=== PATIENT | female | born 1960 | race African-American/Black ===

== ENCOUNTER → 2016-08-06 | Outpatient (CLI) | payer OTHER, BC | LOC: WI 11:19 | PROVIDERS: ATTEND Nurse Practitioner Primary Care | DX: Z12.31 Encounter for screening mammogram for malignant neoplasm of breast (principal) | CPT/HCPCS: 77067; G0202 ==

== ENCOUNTER 2017-01-30 19:41 | Inpatient (IN) | payer OTHER, BC ==
--- NOTE | 2017-01-30 20:31 | ER Document Report ---
ED Medical Screen (RME) - General Chief Complaint: Abdominal Pain >50 Stated Complaint: ABDOMINAL/SHOULDER PAIN Time Seen by Provider: 01/30/17 20:21 Notes: This 57-year-old female patient comes emergency room complaining of onset Tuesday afternoon of mid abdominal pain running from the umbilicus up toward the sternum. She reports the pain was fairly constant until this evening when she took some "digestive advantage" about 6 PM and the discomfort seems to have eased off. She is normally on no medications other than some vitamins. Past medical history is essentially negative. She did have an umbilical hernia repair, no other surgeries. She also reports she had some pain in her left shoulder associated with this, but has been told she has bursitis, and thinks the pain was from being under air conditioning at work. Her mother had coronary artery bypass grafting done at age 60, her father of a heart attack at age 73. I have greeted and performed a rapid initial assessment of this patient. A comprehensive ED assessment and evaluation of the patient, analysis of test results and completion of the medical decision making process will be conducted by additional ED providers. TRAVEL OUTSIDE OF THE [place] IN LAST 30 DAYS: No - Related Data Allergies/Adverse Reactions: oxycodone [Oxycodone] Allergy (Mild, Verified 01/30/17 20:12) Past Medical History - Social History Chew tobacco use (# tins/day): No Frequency of alcohol use: None Drug Abuse: None Renal/ Medical History: Denies: Hx Peritoneal Dialysis GI Medical History: Reports: Hx Gastroesophageal Reflux Disease Past Surgical History: Reports: Hx Abdominal Surgery - hernia repair, Hx Breast Surgery - left lumpectomy - Immunizations Hx Diphtheria, Pertussis, Tetanus Vaccination: Yes Physical Exam - Vital signs Vitals: Temp Pulse Resp BP Pulse Ox 98.5 F 99 18 134/88 H 94 01/30/17 20:12 01/30/17 20:12 01/30/17 20:12 01/30/17 20:12 01/30/17 20:12 Course - Vital Signs Vital signs: Temp Pulse Resp BP Pulse Ox 98.5 F 99 18 134/88 H 94 01/30/17 20:12 01/30/17 20:12 01/30/17 20:12 01/30/17 20:12 01/30/17 20:12
[2017-01-30 20:42] LABS: ABSOLUTE BASOPHILS # (AUTO) 0.1 10^3/uL (0.0-0.2); ABSOLUTE EOSINOPHILS # (AUTO) 0.1 10^3/uL (0.0-0.6); ABSOLUTE LYMPHOCYTES (AUTO) 2.1 10^3/uL (0.5-4.7); ABSOLUTE MONOCYTES (AUTO) 1.9 10^3/uL (0.1-1.4); ABSOLUTE NEUT (AUTO) 9.6 10^3/uL (1.7-8.2); BASOPHILS % (AUTO) 0.5 % (0-2); EOSINOPHILS % (AUTO) 0.4 % (0-6); HEMATOCRIT 38.4 % (36.0-47.0); HEMOGLOBIN 13.5 g/dL (12.0-15.5); HGB HCT DIFFERENCE 2.1; LYMPHOCYTES % (AUTO) 15.3 % (13-45); MEAN CORPUSCULAR HEMOGLOBIN 30.2 pg (27.0-33.4); MEAN CORPUSCULAR HGB CONC 35.3 g/dL (32.0-36.0); MEAN CORPUSCULAR VOLUME 85 fl (80-97); MONOCYTES % (AUTO) 13.8 % (3-13); RED BLOOD COUNT 4.49 10^6/uL (3.72-5.28); RED CELL DISTRIBUTION WIDTH 14.1 % (11.5-14.0); WHITE BLOOD COUNT 13.7 10^3/uL (4.0-10.5)
[2017-01-30 20:59] LABS: ALANINE AMINOTRANSFERASE 35 U/L (9-52); ALBUMIN 3.9 g/dL (3.5-5.0); ALKALINE PHOSPHATASE 77 U/L (38-126); ANION GAP 10 (5-19); ASPARTATE AMINO TRANSFERASE 29 U/L (14-36); BILIRUBIN,DIRECT 0.3 mg/dL (0.0-0.4); BILIRUBIN,TOTAL 0.7 mg/dL (0.2-1.3); BLOOD UREA NITROGEN 15 mg/dL (7-20); CALCIUM 9.6 mg/dL (8.4-10.2); CARBON DIOXIDE 30 mmol/L (22-30); CHLORIDE 99 mmol/L (98-107); CREATINE KINASE 329 U/L (30-135); CREATININE RESULT 0.82 mg/dL (0.52-1.25); GLUCOSE 162 mg/dL (75-110); POTASSIUM 4.3 mmol/L (3.6-5.0); SODIUM 138.7 mmol/L (137-145); TOTAL PROTEIN 7.7 g/dL (6.3-8.2)
[2017-01-30 21:06] LABS: LIPASE 3951.7 U/L (23-300)
[2017-01-30] MEDS ORDERED: NORMAL SALINE 1000 ML 1,000 ML IV PRN (21:26)
--- NOTE | 2017-01-30 21:32 | ER Document Report ---
ED General - General Chief Complaint: Abdominal Pain >50 Stated Complaint: ABDOMINAL/SHOULDER PAIN Time Seen by Provider: 01/30/17 20:21 Mode of Arrival: Ambulatory Information source: Patient Notes: This is a 57-year-old female with a history of GERD (previously on Nexium) that presents to the ER with abdominal pain for the past 3 days. Patient states she was taking some caps for gas and is passed a lot of gas today and currently she states that the pain is gone away completely. The initial triage note stated that she had some abdomen and left shoulder pain. Patient denies any exertional chest pain or shortness of breath. She states she was having this abdominal discomfort that she attributes to tempora and fried potatoes 2 days ago. Currently, patient states the pain is completely gone. TRAVEL OUTSIDE OF THE [place] IN LAST 30 DAYS: No - HPI Onset: Last week Onset/Duration: Gradual Quality of pain: Dull Severity: Moderate Pain Level: 3 Associated symptoms: denies: Chest pain, Fever, Shortness of breath Exacerbated by: Denies Relieved by: Denies Similar symptoms previously: Yes Recently seen / treated by doctor: No - Related Data Allergies/Adverse Reactions: oxycodone [Oxycodone] Allergy (Mild, Verified 01/30/17 20:12) Past Medical History - General Information source: Patient - Social History Smoking Status: Never Smoker Cigarette use (# per day): No Chew tobacco use (# tins/day): No Frequency of alcohol use: None Drug Abuse: None Lives with: Family Family History: Reviewed & Not Pertinent Patient has suicidal ideation: No Patient has homicidal ideation: No - Past Medical History Cardiac Medical History: Reports: None Pulmonary Medical History: Reports: None Neurological Medical History: Reports: None Renal/ Medical History: Reports: None Malignancy Medical History: Reports: None GI Medical History: Reports: Hx Gastroesophageal Reflux Disease, Other - Pancreatic cyst Musculoskeltal Medical History: Reports None Skin Medical History: Reports None Psychiatric Medical History: Reports: None Traumatic Medical History: Reports: None Past Surgical History: Reports: Hx Abdominal Surgery - hernia repair, Hx Breast Surgery - left lumpectomy - Immunizations Hx Diphtheria, Pertussis, Tetanus Vaccination: Yes Review of Systems - Review of Systems Constitutional: denies: Chills, Fever EENT: No symptoms reported Cardiovascular: No symptoms reported Respiratory: No symptoms reported Gastrointestinal: See HPI Genitourinary: No symptoms reported Female Genitourinary: No symptoms reported Musculoskeletal: No symptoms reported Skin: No symptoms reported Hematologic/Lymphatic: No symptoms reported Neurological/Psychological: No symptoms reported Physical Exam - Vital signs Vitals: Temp Pulse Resp BP Pulse Ox 98.5 F 99 18 134/88 H 94 01/30/17 20:12 01/30/17 20:12 01/30/17 20:12 01/30/17 20:12 01/30/17 20:12 Notes: Physical exam: GENERAL: 57-year-old female, alert and oriented 3, no acute distress HEAD: Atraumatic, normocephalic. EYES: Pupils equal round and reactive to light, extraocular movements intact, sclera anicteric, conjunctiva are normal. ENT: TMs normal, nares patent, oropharynx clear without exudates. Moist mucous membranes. NECK: Normal range of motion, supple without obvious mass or JVD. LUNGS: Breath sounds clear to auscultation bilaterally and equal. No wheezes rales or rhonchi. HEART: Regular rate and rhythm without murmurs, rubs or gallops. ABDOMEN: Soft, normoactive bowel sounds. No tenderness to palpation. No guarding, no rebound. No masses appreciated. EXTREMITIES: Normal range of motion, no pitting or edema. No clubbing or cyanosis. NEUROLOGICAL: Cranial nerves II through XII grossly intact. Normal speech, moving all extremities. PSYCH: Normal mood, normal affect. SKIN: Warm, Dry, normal turgor, no rashes or lesions noted. Course - Re-evaluation Re-evalutation: 01/30/17 21:29 Note: Lipase is elevated. I reviewed the patient's previous records which showed a mild elevation in the lipase in 2011 and she was found to have a small pancreatic cyst. Patient states she was treated at [facility] [facility] for that. Given the significantly elevated lipase level, I have recommended a CT of the abdomen. 01/31/17 00:16 CT of the abdomen shows a pancreatic pseudocyst with inflammation. Patient to be treated with IV fluids, pain medicine, anti-emetics. I discussed the case with Dr. Brar who will see the patient in consult. Patient was given ceftriaxone for UTI. - Vital Signs Vital signs: Temp Pulse Resp BP Pulse Ox 98.5 F 99 18 134/88 H 94 01/30/17 20:12 01/30/17 20:12 01/30/17 20:12 01/30/17 20:12 01/30/17 20:12 01/30/17 23:[address] Brar who is seen the patient in the past. He is recommended GI rest, IV fluids and he will evaluate the patient in consultation. - Laboratory Result Diagrams: 01/30/17 20:32 01/30/17 20:32 Laboratory results interpreted by me: 01/30/17 01/30/17 01/30/17 20:32 20:32 22:25 WBC 13.7 H RDW 14.1 H Monocytes % 13.8 H Absolute Neutrophils 9.6 H Absolute Monocytes 1.9 H Glucose 162 H Creatine Kinase 329 H Lipase 3951.7 H Urine Blood SMALL H Ur Leukocyte Esterase MODERATE H - Diagnostic Test Radiology reviewed: Image reviewed, Reports reviewed - CT of the abdomen shows a pancreatic pseudocyst - EKG Interpretation by Me Rate: Normal Rhythm: NSR - EKG shows normal sinus rhythm with a ventricular rate of 89, no acute ST-T wave changes Discharge - Discharge Clinical Impression: Abdominal pain, Pancreatitis, Pancreatic pseudocyst, UTI (urinary tract infection) Condition: Stable Disposition: ADMITTED INPATIENT Admitting Provider: Hospitalist - Dr. Muse Unit Admitted: Telemetry Referrals: ALFREDA ABRAHAM NP [Primary Care Provider] - Follow up as needed
[2017-01-30] MEDS ORDERED: ONDANSETRON HCL INJ/PF 4 MG/2 ML SDV IV ONE (22:11)
[2017-01-30] MEDS ORDERED: MORPHINE SULFATE 10 MG/ML INJ IV ONE (22:11)
--- NOTE | 2017-01-30 22:34 | RADIOLOGY REPORT (SQ) ---
EXAM DESCRIPTION: CT ABD/PELVIS WITH IV ONLY COMPLETED DATE/TIME: 01/30/2017 10:00 pm REASON FOR STUDY: abd pain, elevated lipase COMPARISON: None. TECHNIQUE: CT scan of the abdomen and pelvis performed using helical scanning technique with dynamic intravenous contrast injection. No oral contrast. Images reviewed with lung, soft tissue, and bone windows. Reconstructed coronal and sagittal MPR images reviewed. Delayed images for evaluation of the urinary system also acquired. All images stored on PACS. All CT scanners at this facility use dose modulation, iterative reconstruction, and/or weight based d osing when appropriate to reduce radiation dose to as low as reasonably achievable (ALARA). [facility]: Dose Right [facility]: CareDose [facility]: Dose Right [facility]: Teradose 4D [facility]: Camera360 CONTRAST TYPE AND DOSE: contrast/concentration: Isovue 370.00 mg/ml; Total Contrast Delivered: 86.0 ml; Total Saline Delivered: 69.0 ml RENAL FUNCTION: GFR > 60. RADIATION DOSE: Up-to-date CT equipment and radiation dose reduction techniques were employed. CTDIv ol: 12.3 - 16.9 mGy. DLP: 1460 mGy-cm.. LIMITATIONS: None. FINDINGS: LOWER CHEST: No significant findings. No nodules or infiltrates. LIVER: Normal size. No masses. No dilated ducts. SPLEEN: Normal size. No focal lesions. PANCREAS: 6.3 cm complex cystic lesion in the distal body of the pancreas with moderate left upper qu adrant adjacent inflammation - fluid. Pancreatic duct not dilated. GALLBLADDER: No identified stones by CT criteria. No inflammatory changes to suggest cholecystitis. ADRENAL GLANDS: No significant masses or asymmetry. RIGHT KIDNEY AND URETER: No solid masses. Small cysts. No significant calcifications. No hydronep hrosis or hydroureter. LEFT KIDNEY AND URETER: No solid masses. Small cysts. No significant calcifications. No hydroneph rosis or hydroureter. AORTA AND VESSELS: No aneurysm. No dissection. Renal arteries, SMA, celiac without stenosis. RETROPERITONEUM: No retroperitoneal adenopathy, hemorrhage or masses. BOWEL AND PERITONEAL CAVITY: No masses or inflammatory changes. No free fluid or peritoneal masses. APPENDIX: Normal. PELVIS: Fibroid uterus, largest in the fundus measuring 9.3 cm. Trace cul-de-sac free fluid. Normal bladder. ABDOMINAL WALL: No masses. No hernias. BONES: No significant or acute findings. OTHER: No other significant finding. IMPRESSION: 6.3 cm complex cystic lesion in the distal body of the pancreas, likely pseudocyst, with moderate left upper quadrant adjacent inflammation - fluid. TECHNICAL DOCUMENTATION: JOB ID: [id number] Quality ID # [id number]: Final reports with documentation of one or more dose reduction techniques (e.g., Au tomated exposure control, adjustment of the mA and/or kV according to patient size, use of iterative reconstruction technique) 2010 [employer]- All Rights Reserved
[2017-01-30 23:27] LABS: APPEARANCE,URINE CLOUDY; BILIRUBIN,URINE NEGATIVE (NEGATIVE); GLUCOSE, URINE NEGATIVE (NEGATIVE); KETONES,URINE NEGATIVE (NEGATIVE); LEUKOCYTE ESTERASE,URINE MODERATE (NEGATIVE); NITRITE,URINE NEGATIVE (NEGATIVE); PROTEIN,URINE NEGATIVE (NEGATIVE); URINE SPECIFIC GRAVITY 1.026; UROBILINOGEN,URINE NEGATIVE mg/dL (<2.0)
[2017-01-31] MEDS ORDERED: CEFTRIAXONE 1 GM/D5W RTU 1 GM/50 ML RTUPB IV ONE (00:07)
[2017-01-31] MEDS ORDERED: MORPHINE SULFATE 10 MG/ML INJ IV PRN (00:13)
[2017-01-31] MEDS ORDERED: ONDANSETRON HCL INJ/PF 4 MG/2 ML SDV IV PRN (00:14)
[2017-01-31] MEDS ORDERED: PROMETHAZINE HCL 25 MG TABLET PO PRN (02:32)
[2017-01-31] MEDS ORDERED: ACETAMINOPHEN 325 MG TABLET PO PRN ×2 (02:32→15:30)
[2017-01-31 02:34] LABS: ADD ON TESTING BLD IN LAB ACKNOWLEDGE
[2017-01-31 02:43] LABS: MAGNESIUM 2.6 mg/dL (1.6-2.3)
[2017-01-31] MEDS: NORMAL SALINE 1000 ML 1,000 ML IV PRN ×3 (03:01→14:00)
[2017-01-31] MEDS ORDERED: MAGNESIUM HYDROXIDE SUSP 30 ML UDCUP PO PRN ×2 (05:04→15:30)
--- NOTE | 2017-01-31 05:22 | PDOC H&P ---
History of Present Illness Admission Date/PCP: 01/31/17 00:[address] Patient complains of: abd pain History of Present Illness: KAYLEEN ENRIQUEZ is a 57 year old -Tajik female with history of pancreatitis and pancreatic cyst, followed several years ago for a while at [facility], who presents to the emergency room for evaluation of a 3 day history of intermittent gas-like epigastric pain. Combination cramping and sharp. No radiation of the pain. Nothing made it worse. Simply resolved on its own. Has had previous such pain, during the time when she was being followed for her previously noted pancreatic cyst. Has been passing a lot of gas over the last 24 hours or so. Pain is actually completely resolved by the time she came to the emergency room. No nausea vomiting, fever chills, diarrhea or dysuria. Any problems with hyperlipidemia. Occasional glass of wine, but not very often. Patient has been discussed with emergency room physician who evaluated the patient. Prior to my being contacted about the patient, ER physician had spoken with Dr. Mandel, her floor runner, who is followed her in the past for "gastritis." She has not seen him in approximately 2 years. Dictation via voice recognition software. Laboratory results are listed in [facility] and are reviewed. X-ray summary results are listed below, with full report(s) reviewed. . EKG reviewed. Social history/personal habits: . Has children. teacher elementary school's assistant. No tobacco or illicit drug use. Alcohol use as noted above. Allergies/adverse reactions are listed in [facility] and are reviewed. No problems with morphine. Home medications consist only of a multivitamin daily. REVIEW OF SYSTEMS: Constitutional: No fever or chills. Eyes: Wears glasses. ENT: No swallowing problems or complaints. Denies hearing loss. Pulmonary: No current complaints. Cardiovascular: No current complaints, including chest pain. Gastrointestinal: See history and present illness. Skin: No current complaints, including rashes. Hematologic: Denies easy bruising. Neurologic: No current complaints, including numbness or tingling. Musculoskeletal: Occasional shoulder discomfort from bursitis. Psychiatric: Denies anxiety or depression. Endocrine: No current complaints, including polyuria. Genitourinary: No current complaints, including dysuria. 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 5 feet 2 inches tall. 80.6 kg. BMI 32.5 kg/m. Temperature 97.8. Pulse 91 and regular. Blood pressure 124/67. Respirations are 16 and unlabored. 100% saturation on room air. Slightly obese otherwise well-developed -Tajik female appearing approximately her stated age. Initially asleep, but awakens easily. Pleasant alert and cooperative. Mildly anxious, without agitation. Skin is warm and dry. No grossly obvious evidence of rash in areas of skin examined. No subcutaneous nodules palpated. ENT: Hearing grossly normal to normal conversation. Tongue midline on protrusion pink and slightly tacky. Eyes: No scleral icterus. Pupils equal and reactive to light at 4 mm. Babbitt conjunctivae. Neck is supple and nontender to gentle active range of motion and palpation. Midline trachea. No palpable thyroid nodule mass enlargement or tenderness. Lymphatic: No palpable cervical or clavicular nodes. Neck and lymphatic exams limited by patient body habitus. Psychiatric: Reasonable insight into acute and chronic medical issues. Oriented to time location and why here. Lungs: Auscultation reveals clear and equal breath sounds bilaterally. No use of accessory respiratory muscles. Cardiovascular: Heart regular rate and rhythm, without gallop murmur or rub. No carotid or abdominal aortic bruits. No ankle or pedal edema. Palpable dorsalis pedis pulses. Abdomen:soft somewhat obese and slightly distended with positive bowel sounds. Scant upper abdominal discomfort to palpation; certainly no evidence of guarding or peritoneal signs. Unable to adequately evaluate abdomen for masses or organomegaly due to distention and body habitus. Extremities: Feet are warm and dry. No calf tenderness to compression. No grossly obvious visual evidence of calf swelling. Gentle manipulation of lower extremities fails to reveal any obvious evidence of injury or instability to knees hips or ankles. Neurologic: Moves upper extremities grossly normally. Patellar reflexes absent. Absent Babinski. Light touch is intact at feet. Dorsiflexion and plantarflexion of feet 5 / 5 and symmetric. Past Medical History Cardiac Medical History: Denies: Atrial Fibrillation, Congestive Heart Failure, Coronary Artery Disease, DVT, Myocardial Infarction, Hyperlipidema, Hypertension, Pulmonary Embolism Pulmonary Medical History: Denies: Asthma, Chronic Obstructive Pulmonary Disease (COPD), Sleep Apnea EENT Medical History: Reports: Eyes - Wears glasses Denies: Ears, Throat Neurological Medical History: Denies: Hemorrhagic CVA, Ischemic CVA, Seizures Endocrine Medical History: Denies: Diabetes Mellitus Type 1, Diabetes Mellitus Type 2, Hyperthyroidism, Hypothyroidism Renal/ Medical History: Reports: None Malignancy Medical History: Reports: None, Breast Cancer - Left GI Medical History: Reports: Gastroesophageal Reflux Disease, Other - Pancreatic cyst Denies: Cirrhosis, Hepatitis, Peptic Ulcer Disease Musculoskeltal Medical History: Reports: Other - Bursitis of shoulders Skin Medical History: Reports: None Psychiatric Medical History: Denies: Alcohol Dependency, Depression, General Anxiety Disorder, Substance Abuse, Tobacco Dependency Traumatic Medical History: Reports: None Infectious Medical History: Denies: Hepatitis B, Hepatitis C Past Surgical History Past Surgical History: Reports: Herniorrhaphy, Other - Colonoscopic polypectomy 2013. Left breast lumpectomy with chemo, XRT Social History Information Source: Patient, Emergency Med Personnel, [facility] Records Lives with: Spouse/Significant other Smoking Status: Unknown if Ever Smoked Frequency of Alcohol Use: Occasional Hx Recreational Drug Use: No Drugs: None Hx Prescription Drug Abuse: No - Advance Directive Resuscitation Status: Full Code Surrogate healthcare decision maker:: Family History Family History: Reviewed & Not Pertinent Parental Family History Reviewed: Yes - Father of [place]; mother with multiple health problems, including diabetes Children Family History Reviewed: Yes - Healthy Sibling(s) Family History Reviewed.: Yes - Medication/Allergy Home Medications: Multivitamin [Multivitamins] 1 each PO DAILY 01/15/12 Allergies/Adverse Reactions: oxycodone [Oxycodone] Allergy (Mild, Verified 01/31/17 02:32) Physical Exam Vital Signs: Temp Pulse Resp BP Pulse Ox 97.8 F 91 16 124/67 100 01/31/17 02:00 01/31/17 02:09 01/31/17 02:00 01/31/17 02:00 01/31/17 02:00 Intake & Output 01/30/17 01/31/17 02/01/17 00:59 00:59 00:59 Weight 80.6 kg Results Impressions: Abdomen/Pelvis CT 01/30/17 21:27 IMPRESSION: 6.3 cm complex cystic lesion in the distal body of the pancreas, likely pseudocyst, with moderate left upper quadrant adjacent inflammation - fluid. Assessment & Plan - Diagnosis (1) Acute pancreatitis Qualifiers: Pancreatitis type: unspecified pancreatitis type Acute pancreatitis complication: no infection or necrosis Qualified Code(s): K85.90 - Acute pancreatitis without necrosis or infection, unspecified Is this a current diagnosis for this admission?: Yes Plan: Bowel rest. Ice chips only. IV fluid. Pain control. Lipid panel. I have strongly encouraged patient to be careful getting out of bed, to avoid a fall with injury. Knee high SCDs for DVT prophylaxis, along with subcutaneous Lovenox. Impression and plans were discussed with patient, who concurs. Time spent in evaluation and management of patient: 68 minutes. (2) DVT prophylaxis Is this a current diagnosis for this admission?: Yes (3) Pancreatic cyst Is this a current diagnosis for this admission?: Yes Plan: GI consult; Dr. Mandel aware patient has been admitted and has agreed to see in consultation.. (4) UTI (urinary tract infection) Qualifiers: Urinary tract infection type: site unspecified Is this a current diagnosis for this admission?: Yes Plan: Blood and urine cultures. Rocephin. - Time Time Spent: 50 to 70 Minutes Medications reviewed and adjusted accordingly: Yes Anticipated discharge: Home Within: within 72 hours - Inpatient Certification Based on my medical assessment, after consideration of the patient's comorbidities, presenting symptoms, or acuity I expect that the services needed warrant INPATIENT care.: Yes I certify that my determination is in accordance with my understanding of Medicare's requirements for reasonable and necessary INPATIENT services [42 CFR 412.3e].: Yes Medical Necessity: Need Close Monitoring Due to Risk of Patient Decompensation, Need For IV Fluids, Need for Pain Control, Risk of Complication if Not Cared For in Hospital Post Hospital Care: D/C or Transfer Summary
--- NOTE | 2017-01-31 07:02 | EKG REPORT ---
SEVERITY:- ABNORMAL ECG - SINUS RHYTHM LEFT ATRIAL ABNORMALITY BORDERLINE T ABNORMALITIES, INFERIOR LEADS : Confirmed by: Adrianna Baker 31-Jan-2017 07:01:33
[2017-01-31 08:03] LABS: ANION GAP 13 (5-19); BLOOD UREA NITROGEN 10 mg/dL (7-20); CALCIUM 9.3 mg/dL (8.4-10.2); CARBON DIOXIDE 26 mmol/L (22-30); CHLORIDE 105 mmol/L (98-107); CHOLESTEROL 157.62 mg/dL (0-200); CREATININE RESULT 0.65 mg/dL (0.52-1.25); Direct HDL 40 mg/dL (>40); GLUCOSE 108 mg/dL (75-110); POTASSIUM 4.2 mmol/L (3.6-5.0); SODIUM 143.8 mmol/L (137-145); TRIGLYCERIDES 97 mg/dL (<150)
[2017-01-31 08:09] LABS: ABSOLUTE EOSINOPHILS # (AUTO) 0.1 10^3/uL (0.0-0.6); ABSOLUTE LYMPHOCYTES (AUTO) 1.4 10^3/uL (0.5-4.7); ABSOLUTE MONOCYTES (AUTO) 1.7 10^3/uL (0.1-1.4); ABSOLUTE NEUT (AUTO) 8.5 10^3/uL (1.7-8.2); BASOPHILS % (AUTO) 0.4 % (0-2); EOSINOPHILS % (AUTO) 0.6 % (0-6); HEMATOCRIT 36.8 % (36.0-47.0); HEMOGLOBIN 12.9 g/dL (12.0-15.5); HGB HCT DIFFERENCE 1.9; LYMPHOCYTES % (AUTO) 12.1 % (13-45); MEAN CORPUSCULAR HEMOGLOBIN 30.2 pg (27.0-33.4); MEAN CORPUSCULAR HGB CONC 35.1 g/dL (32.0-36.0); MEAN CORPUSCULAR VOLUME 86 fl (80-97); MONOCYTES % (AUTO) 14.1 % (3-13); RED BLOOD COUNT 4.28 10^6/uL (3.72-5.28); RED CELL DISTRIBUTION WIDTH 14.1 % (11.5-14.0); SEGMENTED NEUTROPHILS % (AUTO) 72.8 % (42-78); WHITE BLOOD COUNT 11.7 10^3/uL (4.0-10.5)
[2017-01-31 08:17] LABS: DIRECT LDL 63 mg/dL (<100)
[2017-01-31] MEDS: MORPHINE SULFATE 10 MG/ML INJ IV PRN ×4 (09:27→21:46)
[2017-01-31] MEDS: ENOXAPARIN SODIUM INJ 40 MG/0.4 ML DISP.SYRIN SUBCUT SCH (09:27)
[2017-01-31] MEDS: DOCUSATE SODIUM 100 MG CAPSULE PO SCH ×2 (09:31→21:44)
[2017-01-31] MEDS ORDERED: DOCUSATE SODIUM 100 MG/10 ML UDC PO SCH (10:00)
[2017-01-31] MEDS ORDERED: MIDAZOLAM 2 MG/2 ML INJ ONE (17:42)
[2017-01-31] MEDS ORDERED: GLUCAGON,HUMAN RECOMB 1 MG INJ ONE (17:42)
[2017-01-31] MEDS ORDERED: FLUMAZENIL INJ 0.5 MG/5 ML VIAL ONE (17:42)
[2017-01-31] MEDS ORDERED: FENTANYL CITRATE INJ/PF 100 MCG/2 ML AMPUL ONE (17:42)
[2017-01-31] MEDS ORDERED: NALOXONE HCL INJ/PF 0.4 MG/1 ML SDV ONE (17:42)
[2017-01-31] MEDS ORDERED: EPINEPHRINE INJ 1 MG/10 ML DISP.SYRIN ONE (17:42)
--- NOTE | 2017-01-31 17:56 | Progress Note ---
Provider Note Provider Note: Patient seen, examined and chart reviewed. Agree with acute pancreatitis in setting of chronic pancreatitis. Patient does have a pseudocyst on her pancreas.
--- NOTE | 2017-01-31 19:01 | PDOC CONSULTATION ---
Consultation Consult Date: 01/30/17 History of Present Illness Admission Date/PCP: 01/31/17 05:04 ALFREDA ABRAHAM NP History of Present Illness: This is a 57-year-old lady who was admitted to the emergency room on 01/30/2017 with abdominal pain and pancreatitis. She had been in her normal state of health until 3 days ago when she started to have epigastric pain. The pain has been constant without associated nausea or vomiting. On admission her lipase was 4000 and her LFTs were normal. She does not drink alcohol and has not been started on any new medications lately. She has a history of pancreatic disease initially diagnosed by ultrasound in July 2011. There was a 3.5 cm cyst in the pancreatic tail back then. She was referred for an endoscopic ultrasound which she had in September 2011 showing a 27 x 25 mm pancreatic cyst. The cyst was aspirated and the plan was to repeat endoscopic ultrasound in 6-12 months. Patient has not been back to [facility] [place]. She has not lost any weight. She had a colonoscopy in 2011 and is due for a follow-up due to history of polyps. Past Medical History Cardiac Medical History: Reports: None Denies: Atrial Fibrillation, Congestive Heart Failure, Coronary Artery Disease, DVT, Myocardial Infarction, Hyperlipidema, Hypertension, Pulmonary Embolism Pulmonary Medical History: Reports: None Denies: Asthma, Chronic Obstructive Pulmonary Disease (COPD), Sleep Apnea EENT Medical History: Reports: Eyes - Wears glasses Denies: Ears, Throat Neurological Medical History: Reports: None Denies: Hemorrhagic CVA, Ischemic CVA, Seizures Endocrine Medical History: Denies: Diabetes Mellitus Type 1, Diabetes Mellitus Type 2, Hyperthyroidism, Hypothyroidism Renal/ Medical History: Reports: None Malignancy Medical History: Reports: None, Breast Cancer - Left GI Medical History: Reports: Gastroesophageal Reflux Disease, Other - Pancreatic cyst Denies: Cirrhosis, Hepatitis, Peptic Ulcer Disease Musculoskeltal Medical History: Reports: None, Other - Bursitis of shoulders Skin Medical History: Reports: None Psychiatric Medical History: Reports: None Denies: Alcohol Dependency, Depression, General Anxiety Disorder, Substance Abuse, Tobacco Dependency Traumatic Medical History: Reports: None Infectious Medical History: Denies: Hepatitis B, Hepatitis C Past Surgical History Past Surgical History: Endoscopic ultrasound in September 2011, EGD and colonoscopy in July 2011 Past Surgical History: Reports: Herniorrhaphy, Other - Colonoscopic polypectomy 2013. Left breast lumpectomy with chemo, XRT Denies: Hysterectomy Social History Lives with: Spouse/Significant other Smoking Status: Unknown if Ever Smoked Frequency of Alcohol Use: Occasional Hx Recreational Drug Use: No Drugs: None Hx Prescription Drug Abuse: No - Advance Directive Resuscitation Status: Full Code Family History Family History: Reviewed & Not Pertinent Parental Family History Reviewed: No Children Family History Reviewed: NA Sibling(s) Family History Reviewed.: NA Medication/Allergy Home Medications: Multivitamin [Multivitamins] 1 each PO DAILY 01/15/12 Allergies/Adverse Reactions: oxycodone [Oxycodone] Adverse Reaction (Mild, Verified 01/31/17 05:14) mildly dizzy Physical Exam Vital Signs: Temp Pulse Resp BP Pulse Ox 97.8 F 110 H 22 H 153/89 H 95 01/31/17 18:14 01/31/17 18:50 01/31/17 18:50 01/31/17 18:50 01/31/17 18:50 Intake & Output 01/30/17 01/31/17 02/01/17 06:59 06:59 06:59 Intake Total 659 2400 Balance 659 2400 Exam: General: Patient is alert and looks well. HEENT: There is no pallor or jaundice. PERRLA. Oropharynx normal Respiratory: No chest deformity. No respiratory distress. Chest wall palpitation was unremarkable. Breath sounds were normal Cardiovascular: Heart sounds 1 and 2 normal with no murmurs. Abdominal: Not distended. Soft and nontender. Liver and spleen not palpable. No ascites demonstrated. Bowel sounds active. Rectal examination was deferred. Extremities: No edema Neurological: Alert and oriented x4. Grossly nonfocal. Normal speech Skin: No significant rash Psychological: Normal affect Results Laboratory Results: 01/31/17 07:16 01/31/17 07:16 01/31/17 01/31/17 07:16 07:16 WBC 11.7 H RBC 4.28 Hgb 12.9 Hct 36.8 MCV 86 MCH 30.2 MCHC 35.1 RDW 14.1 H Plt Count 258 Seg Neutrophils % 72.8 Lymphocytes % 12.1 L Monocytes % 14.1 H Eosinophils % 0.6 Basophils % 0.4 Absolute Neutrophils 8.5 H Absolute Lymphocytes 1.4 Absolute Monocytes 1.7 H Absolute Eosinophils 0.1 Absolute Basophils 0.0 Sodium 143.8 Potassium 4.2 Chloride 105 Carbon Dioxide 26 Anion Gap 13 BUN 10 Creatinine 0.65 Est GFR ( Amer) > 60 Est GFR (Non-Af Amer) > 60 Glucose 108 Calcium 9.3 Triglycerides 97 Cholesterol 157.62 LDL Cholesterol Direct 63 VLDL Cholesterol 19.0 HDL Cholesterol 40 01/31/17 07:16 Troponin I < 0.012 Impressions: Abdomen/Pelvis CT 01/30/17 21:27 IMPRESSION: 6.3 cm complex cystic lesion in the distal body of the pancreas, likely pseudocyst, with moderate left upper quadrant adjacent inflammation - fluid. 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 The cyst has grown in size which is of concern. We will treat her acute pancreatitis in the hospital since she is having epigastric pain. She will undergo an EGD due to the epigastric pain. She will need an endoscopic ultrasound, biopsy and possibly resection of the cyst at [facility]. This would be arranged as outpatient. (3) Abnormal CT of the abdomen Is this a current diagnosis for this admission?: Yes (4) Pancreatic cyst Is this a current diagnosis for this admission?: Yes
--- NOTE | 2017-01-31 19:05 | Operative Report ---
Operative Report DATE OF SURGERY: 01/31/17 Operative Report: Pre-op diagnosis: Epigastric pain and acute pancreatitis Post-op diagnosis: 1. Antral gastritis, erosions, and a small antral ulcer 2. Duodenitis and duodenal erosions 3. Gastroesophageal junction stricture Surgery: Esophagogastroduodenoscopy with biopsy Medications: Versed 2mg Fentanyl 100 mcg IV push Tissue removed: Antral biopsy for pathology Procedure: After informed consent obtained from patient, the throat was sprayed with Hurricane and conscious sedation was achieved. The upper endoscope was inserted into the esophagus under direct vision and advanced into the stomach. The duodenum was entered and examined to the second part. Endoscope was then slowly pulled out of the patient as the mucosa was examined into details. Patient tolerated procedure well. Findings Esophagus: Normal except for narrowing/ring noted at the GE junction just above a small hiatal hernia Antrum: Moderate erythema with a few long erosions and a small 3 mm ulcer Body: Normal Fundus: Normal Duodenum first part: A few superficial erosions noted Duodenum second part: Normal Plan: Await pathology. Continue PPI every day. OPERATION: .
[2017-01-31] MEDS ORDERED: CEFTRIAXONE 1 GM/D5W RTU 1 GM/50 ML RTUPB IV SCH (22:00)
[2017-02-01] MEDS: NORMAL SALINE 1000 ML 1,000 ML IV PRN ×3 (03:32→16:32)
[2017-02-01] MEDS: MORPHINE SULFATE 10 MG/ML INJ IV PRN ×6 (03:32→20:34)
[2017-02-01] MEDS: DOCUSATE SODIUM 100 MG CAPSULE PO SCH ×2 (09:49→20:34)
[2017-02-01] MEDS: ENOXAPARIN SODIUM INJ 40 MG/0.4 ML DISP.SYRIN SUBCUT SCH (09:49)
[2017-02-01] MEDS ORDERED: DEXTROSE 5%-LACTATED RINGERS 1,000 ML IV PRN (17:11)
--- NOTE | 2017-02-01 18:28 | PDOC PROGRESS REPORT ---
Subjective Progress Note for:: 02/01/17 Subjective:: The patient is resting comfortably in a chair today. She is still n.p.o. She continues to have some abdominal pain that radiates into her left shoulder blade. She had an upper endoscopy yesterday performed by gastroenterology. Biopsy results are pending. Overall she denies fever chills. No chest pain, shortness of breath or heart palpitations. She has had no nausea or vomiting but she has not had anything to eat. She continues to have abdominal pain. She has not had a bowel movement. No dysuria, frequency or hematuria. Physical Exam Vital Signs: Temp Pulse Resp BP Pulse Ox 98.1 F 108 H 17 148/77 H 98 02/01/17 16:11 02/01/17 16:11 02/01/17 16:11 02/01/17 16:11 02/01/17 16:11 Intake & Output 01/31/17 02/01/17 02/02/17 06:59 06:59 06:59 Intake Total 659 6042 1800 Output Total 1350 Balance 659 6042 450 General appearance: PRESENT: no acute distress, other - She looks as if she does not feel well Head exam: PRESENT: atraumatic, normocephalic Mouth exam: PRESENT: moist, tongue midline Respiratory exam: PRESENT: clear to auscultation familia. ABSENT: rales, rhonchi, wheezes Cardiovascular exam: PRESENT: RRR. ABSENT: diastolic murmur, rubs, systolic murmur GI/Abdominal exam: PRESENT: diminished bowel sounds, guarding, hypoactive bowel sounds, soft, tenderness Rectal exam: PRESENT: deferred Extremities exam: PRESENT: full ROM. ABSENT: calf tenderness, clubbing, pedal edema Neurological exam: PRESENT: alert, awake, oriented to person, oriented to place , oriented to time, oriented to situation, CN II-XII grossly intact. ABSENT: motor sensory deficit Psychiatric exam: PRESENT: appropriate affect, normal mood. ABSENT: homicidal ideation, suicidal ideation Skin exam: PRESENT: dry, intact, warm. ABSENT: cyanosis, rash Results Laboratory Results: 01/31/17 07:16 01/31/17 07:16 02/01/17 09:29 Lipase 1568.8 H 01/31/17 07:16 Troponin I < 0.012 Impressions: Abdomen/Pelvis CT 01/30/17 21:27 IMPRESSION: 6.3 cm complex cystic lesion in the distal body of the pancreas, likely pseudocyst, with moderate left upper quadrant adjacent inflammation - fluid. Assessment & Plan - Diagnosis (1) Acute pancreatitis Qualifiers: Pancreatitis type: unspecified pancreatitis type Acute pancreatitis complication: no infection or necrosis Qualified Code(s): K85.90 - Acute pancreatitis without necrosis or infection, unspecified Is this a current diagnosis for this admission?: Yes Plan: We will continue aggressive IV fluid hydration. She will remain n.p.o. tonight. If her lipase level goes down hopefully she can be started on clear liquids tomorrow. (2) UTI (urinary tract infection) Qualifiers: Urinary tract infection type: site unspecified Is this a current diagnosis for this admission?: Yes Plan: The patient has evidence of a urinary tract infection. She has been started on IV ceftriaxone. This is likely the source of her leukocytosis. - Time Time Spent with patient: 15-24 minutes - Inpatient Certification Medical Necessity: Need For IV Fluids - Inpatient hospitalization remains necessary. Patient has acute pancreatitis requiring parenteral fluids. Currently she is n.p.o. We will need to have her lipase level go down and slowly increase her diet prior to discharge.
[2017-02-01] MEDS: CEFTRIAXONE 1 GM/D5W RTU 1 GM/50 ML RTUPB IV SCH (20:35)
[2017-02-02] MEDS: MORPHINE SULFATE 10 MG/ML INJ IV PRN ×3 (01:21→23:11)
[2017-02-02 05:26] LABS: ABSOLUTE EOSINOPHILS # (AUTO) 0.2 10^3/uL (0.0-0.6); ABSOLUTE LYMPHOCYTES (AUTO) 2.9 10^3/uL (0.5-4.7); ABSOLUTE MONOCYTES (AUTO) 1.4 10^3/uL (0.1-1.4); ABSOLUTE NEUT (AUTO) 6.5 10^3/uL (1.7-8.2); BASOPHILS % (AUTO) 0.4 % (0-2); EOSINOPHILS % (AUTO) 1.7 % (0-6); HEMATOCRIT 35.5 % (36.0-47.0); HEMOGLOBIN 12.5 g/dL (12.0-15.5); LYMPHOCYTES % (AUTO) 26.2 % (13-45); MEAN CORPUSCULAR HEMOGLOBIN 30.1 pg (27.0-33.4); MEAN CORPUSCULAR HGB CONC 35.2 g/dL (32.0-36.0); MEAN CORPUSCULAR VOLUME 86 fl (80-97); RED BLOOD COUNT 4.15 10^6/uL (3.72-5.28); RED CELL DISTRIBUTION WIDTH 14.1 % (11.5-14.0); SEGMENTED NEUTROPHILS % (AUTO) 58.7 % (42-78)
[2017-02-02 05:39] LABS: ANION GAP 17 (5-19); BLOOD UREA NITROGEN 8 mg/dL (7-20); CALCIUM 8.8 mg/dL (8.4-10.2); CARBON DIOXIDE 21 mmol/L (22-30); CHLORIDE 100 mmol/L (98-107); CREATININE RESULT 0.58 mg/dL (0.52-1.25); GLUCOSE 75 mg/dL (75-110); MAGNESIUM 1.9 mg/dL (1.6-2.3); POTASSIUM 3.8 mmol/L (3.6-5.0); SODIUM 137.8 mmol/L (137-145)
[2017-02-02 08:26] LABS: HEMATOCRIT 34.1 % (36.0-47.0); HGB HCT DIFFERENCE 1.9; MEAN CORPUSCULAR HEMOGLOBIN 30.1 pg (27.0-33.4); MEAN CORPUSCULAR HGB CONC 35.2 g/dL (32.0-36.0); MEAN CORPUSCULAR VOLUME 86 fl (80-97); RED BLOOD COUNT 3.99 10^6/uL (3.72-5.28); RED CELL DISTRIBUTION WIDTH 13.9 % (11.5-14.0); WHITE BLOOD COUNT 10.7 10^3/uL (4.0-10.5)
[2017-02-02] MEDS: ENOXAPARIN SODIUM INJ 40 MG/0.4 ML DISP.SYRIN SUBCUT SCH (09:37)
[2017-02-02] MEDS: DOCUSATE SODIUM 100 MG CAPSULE PO SCH ×2 (09:37→21:38)
--- NOTE | 2017-02-02 13:31 | PDOC PROGRESS REPORT ---
Subjective Progress Note for:: 02/02/17 Subjective:: The patient is a the patient is a 57-year-old -[place] female with a past medical history significant for pancreatitis with an associated pancreatic pseudo-cyst. 5 years ago she had an episode and was seen at [facility] where her cyst was drained. The patient presented to the emergency room with a 3 day history of intermittent gas-like worsening epigastric pain that radiated into her shoulder. In the emergency room she was found to have a lipase of 3951. She also had a CT scan of the abdomen and pelvis which revealed a 6.3 cm complex cystic lesion in the distal body of the pancreas with moderate left upper quadrant adjacent inflammation/fluid. The pancreatic duct fortunately was not dilated. She was admitted to the hospital and placed on IV fluid hydration. She was initially n.p.o. Gastroenterology saw the patient in the hospital and performed an upper endoscopy on the patient. Biopsies are pending at this point. Over the past several days her lipase level is trending downwards. Today it is down to 1054. GI saw the patient yesterday afternoon and started her on a clear liquid diet which she is tolerating. Today when I saw her she is resting comfortably. She states that she is requiring very little pain medication at this point. She is tolerating clear liquids and it is not causing any additional abdominal pain. She has had no nausea or vomiting. No fever chills overnight. No chest pain, shortness of breath or heart palpitations. She has not yet had a bowel movement. No dysuria , frequency or hematuria. Physical Exam Vital Signs: Temp Pulse Resp BP Pulse Ox 97.9 F 94 17 137/83 H 100 02/02/17 12:17 02/02/17 12:17 02/02/17 12:17 02/02/17 12:17 02/02/17 12:17 Intake & Output 02/01/17 02/02/17 02/03/17 06:59 06:59 06:59 Intake Total 6042 1920 Output Total 1350 Balance 6042 570 Weight 80.6 kg General appearance: PRESENT: no acute distress, cooperative, well-developed, well-nourished Head exam: PRESENT: atraumatic, normocephalic Mouth exam: PRESENT: moist, tongue midline Respiratory exam: PRESENT: clear to auscultation familia. ABSENT: rales, rhonchi, wheezes Cardiovascular exam: PRESENT: RRR. ABSENT: diastolic murmur, rubs, systolic murmur GI/Abdominal exam: PRESENT: normal bowel sounds, soft, tenderness, other - She is mildly tender to palpation in the right epigastric area and left upper quadrant. No rebound guarding or rigidity.. ABSENT: distended, guarding, mass , organolmegaly, rebound Rectal exam: PRESENT: deferred Extremities exam: PRESENT: full ROM. ABSENT: calf tenderness, clubbing, pedal edema Musculoskeletal exam: PRESENT: ambulatory, tenderness - The patient is quite tender to palpation and complains of pain in the right neck and shoulder. Neurological exam: PRESENT: alert, awake, oriented to person, oriented to place , oriented to time, oriented to situation, CN II-XII grossly intact. ABSENT: motor sensory deficit Psychiatric exam: PRESENT: appropriate affect, normal mood. ABSENT: homicidal ideation, suicidal ideation Skin exam: PRESENT: dry, intact, warm. ABSENT: cyanosis, rash Results Laboratory Results: 02/02/17 07:50 02/02/17 04:43 02/02/17 02/02/17 02/02/17 04:43 04:43 04:43 WBC 11.0 H RBC 4.15 Hgb 12.5 Hct 35.5 L MCV 86 MCH 30.1 MCHC 35.2 RDW 14.1 H Plt Count 277 Seg Neutrophils % 58.7 Lymphocytes % 26.2 Monocytes % 13.0 Eosinophils % 1.7 Basophils % 0.4 Absolute Neutrophils 6.5 Absolute Lymphocytes 2.9 Absolute Monocytes 1.4 Absolute Eosinophils 0.2 Absolute Basophils 0.0 Sodium 137.8 Potassium 3.8 Chloride 100 Carbon Dioxide 21 L Anion Gap 17 BUN 8 Creatinine 0.58 Est GFR ( Amer) > 60 Est GFR (Non-Af Amer) > 60 Glucose 75 Calcium 8.8 Magnesium 1.9 Lipase 1054.6 H 02/02/17 07:50 WBC 10.7 H RBC 3.99 Hgb 12.0 Hct 34.1 L MCV 86 MCH 30.1 MCHC 35.2 RDW 13.9 Plt Count 298 Seg Neutrophils % Lymphocytes % Monocytes % Eosinophils % Basophils % Absolute Neutrophils Absolute Lymphocytes Absolute Monocytes Absolute Eosinophils Absolute Basophils Sodium Potassium Chloride Carbon Dioxide Anion Gap BUN Creatinine Est GFR ( Amer) Est GFR (Non-Af Amer) Glucose Calcium Magnesium Lipase 01/31/17 07:16 Troponin I < 0.012 Impressions: Abdomen/Pelvis CT 01/30/17 21:27 IMPRESSION: 6.3 cm complex cystic lesion in the distal body of the pancreas, likely pseudocyst, with moderate left upper quadrant adjacent inflammation - fluid. Assessment & Plan - Diagnosis (1) Acute pancreatitis Qualifiers: Pancreatitis type: unspecified pancreatitis type Acute pancreatitis complication: no infection or necrosis Qualified Code(s): K85.90 - Acute pancreatitis without necrosis or infection, unspecified Is this a current diagnosis for this admission?: Yes Plan: GI is following. Currently the patient is tolerating a clear liquid diet. We will advance per recommendations from GI. Hopefully she will be stable for discharge in the next 1-2 days. Pathology results are pending. GI is working on getting her referred back to do. (2) UTI (urinary tract infection) Qualifiers: Urinary tract infection type: site unspecified Is this a current diagnosis for this admission?: Yes
[2017-02-02] MEDS ORDERED: TRAMADOL HCL 50 MG TABLET PO PRN (17:34)
[2017-02-02] MEDS: CEFTRIAXONE 1 GM/D5W RTU 1 GM/50 ML RTUPB IV SCH (21:38)
[2017-02-03 05:54] LABS: ALANINE AMINOTRANSFERASE 27 U/L (9-52); ALBUMIN 3.1 g/dL (3.5-5.0); ALKALINE PHOSPHATASE 66 U/L (38-126); ANION GAP 11 (5-19); ASPARTATE AMINO TRANSFERASE 18 U/L (14-36); BILIRUBIN,DIRECT 0.4 mg/dL (0.0-0.4); BILIRUBIN,TOTAL 0.6 mg/dL (0.2-1.3); BLOOD UREA NITROGEN 11 mg/dL (7-20); CALCIUM 9.1 mg/dL (8.4-10.2); CARBON DIOXIDE 26 mmol/L (22-30); CHLORIDE 101 mmol/L (98-107); CREATININE RESULT 0.57 mg/dL (0.52-1.25); GLUCOSE 101 mg/dL (75-110); LIPASE 1018.2 U/L (23-300); POTASSIUM 3.5 mmol/L (3.6-5.0); TOTAL PROTEIN 6.6 g/dL (6.3-8.2)
[2017-02-03] MEDS: MORPHINE SULFATE 10 MG/ML INJ IV PRN ×2 (06:47→14:13)
[2017-02-03] MEDS: ENOXAPARIN SODIUM INJ 40 MG/0.4 ML DISP.SYRIN SUBCUT SCH (09:34)
[2017-02-03] MEDS: DOCUSATE SODIUM 100 MG CAPSULE PO SCH ×2 (09:34→21:30)
--- NOTE | 2017-02-03 15:43 | PDOC PROGRESS REPORT ---
Subjective Progress Note for:: 02/03/17 Subjective:: Patient reports that her abdominal pain has resolved. She does continue to have complaints of right shoulder pain. She has been tolerating a liquid diet without difficulty. Physical Exam Vital Signs: Temp Pulse Resp BP Pulse Ox 97.9 F 101 H 17 120/74 98 02/03/17 10:54 02/03/17 14:00 02/03/17 10:54 02/03/17 10:54 02/03/17 10:54 Intake & Output 02/02/17 02/03/17 02/04/17 06:59 06:59 06:59 Intake Total 1920 1130 Output Total 1350 1250 Balance 570 -120 Weight 80.6 kg General appearance: PRESENT: no acute distress Eye exam: PRESENT: conjunctiva pink. ABSENT: scleral icterus Mouth exam: PRESENT: moist, tongue midline Neck exam: ABSENT: JVD Respiratory exam: PRESENT: clear to auscultation familia. ABSENT: rales, rhonchi, wheezes Cardiovascular exam: PRESENT: RRR. ABSENT: diastolic murmur, rubs, systolic murmur GI/Abdominal exam: PRESENT: normal bowel sounds, soft. ABSENT: distended, guarding, mass, organolmegaly, rebound, tenderness Extremities exam: ABSENT: calf tenderness, clubbing, pedal edema Neurological exam: PRESENT: alert, awake, oriented to person, oriented to place , oriented to time, oriented to situation, CN II-XII grossly intact. ABSENT: motor sensory deficit Psychiatric exam: PRESENT: appropriate affect Skin exam: PRESENT: dry, intact, warm. ABSENT: cyanosis, rash Results Laboratory Results: 02/02/17 07:50 02/03/17 05:05 02/03/17 05:05 Sodium 138.0 Potassium 3.5 L Chloride 101 Carbon Dioxide 26 Anion Gap 11 BUN 11 Creatinine 0.57 Est GFR ( Amer) > 60 Est GFR (Non-Af Amer) > 60 Glucose 101 Calcium 9.1 Magnesium 2.0 Total Bilirubin 0.6 AST 18 ALT 27 Alkaline Phosphatase 66 Total Protein 6.6 Albumin 3.1 L Lipase 1018.2 H 01/31/17 07:16 Troponin I < 0.012 Impressions: Abdomen/Pelvis CT 01/30/17 21:27 IMPRESSION: 6.3 cm complex cystic lesion in the distal body of the pancreas, likely pseudocyst, with moderate left upper quadrant adjacent inflammation - fluid. Assessment & Plan - Diagnosis (1) Acute pancreatitis Qualifiers: Pancreatitis type: unspecified pancreatitis type Acute pancreatitis complication: no infection or necrosis Qualified Code(s): K85.90 - Acute pancreatitis without necrosis or infection, unspecified Is this a current diagnosis for this admission?: Yes Plan: The patient still has an elevated lipase but clinically has improved greatly. We will advance her diet regular and see how she does. She is able to tolerate that we can hopefully discharge home tomorrow. (2) Pancreatic cyst Is this a current diagnosis for this admission?: Yes (3) Left shoulder pain Is this a current diagnosis for this admission?: Yes (4) UTI (urinary tract infection) Qualifiers: Urinary tract infection type: site unspecified Is this a current diagnosis for this admission?: Yes Plan: Patient is on Rocephin. Growing Gardnerella from urinary culture. - Time Time Spent with patient: 25-34 minutes - Inpatient Certification Medical Necessity: Need Close Monitoring Due to Risk of Patient Decompensation - Plan Summary Plan Summary: If she tolerates her diet today will discharge home tomorrow.
[2017-02-03] MEDS: CEFTRIAXONE 1 GM/D5W RTU 1 GM/50 ML RTUPB IV SCH (21:30)
[2017-02-04 07:25] LABS: ANION GAP 10 (5-19); BLOOD UREA NITROGEN 10 mg/dL (7-20); CALCIUM 9.6 mg/dL (8.4-10.2); CARBON DIOXIDE 30 mmol/L (22-30); CHLORIDE 100 mmol/L (98-107); CREATININE RESULT 0.66 mg/dL (0.52-1.25); GLUCOSE 98 mg/dL (75-110); LIPASE 1044.9 U/L (23-300); POTASSIUM 3.9 mmol/L (3.6-5.0); SODIUM 140.4 mmol/L (137-145)
[2017-02-04 07:31] LABS: ABSOLUTE EOSINOPHILS # (AUTO) 0.2 10^3/uL (0.0-0.6); ABSOLUTE LYMPHOCYTES (AUTO) 2.3 10^3/uL (0.5-4.7); ABSOLUTE MONOCYTES (AUTO) 1.4 10^3/uL (0.1-1.4); BASOPHILS % (AUTO) 0.4 % (0-2); EOSINOPHILS % (AUTO) 3.1 % (0-6); HEMATOCRIT 35.2 % (36.0-47.0); HGB HCT DIFFERENCE 3.8; LYMPHOCYTES % (AUTO) 28.7 % (13-45); MEAN CORPUSCULAR HEMOGLOBIN 30.6 pg (27.0-33.4); MEAN CORPUSCULAR HGB CONC 36.9 g/dL (32.0-36.0); MEAN CORPUSCULAR VOLUME 83 fl (80-97); MONOCYTES % (AUTO) 17.2 % (3-13); RED BLOOD COUNT 4.25 10^6/uL (3.72-5.28); RED CELL DISTRIBUTION WIDTH 13.9 % (11.5-14.0); SEGMENTED NEUTROPHILS % (AUTO) 50.6 % (42-78); WHITE BLOOD COUNT 7.9 10^3/uL (4.0-10.5)
[2017-02-04 10:20] VITALS: BP 138/80
--- NOTE | 2017-02-04 14:31 | PDOC DISCHARGE SUMMARY ---
General - Admit/Disc Date/PCP Admission Date/Primary Care Provider: 01/31/17 05:04 ALFREDA ABRAHAM NP Discharge Date: 02/04/17 - Discharge Diagnosis (1) Acute pancreatitis Is this a current diagnosis for this admission?: Yes Summary: EGD was done that showed some gastritis, duodenitis, antral ulcer and GE junction stricture. (2) Pancreatic cyst Is this a current diagnosis for this admission?: Yes (3) Left shoulder pain Is this a current diagnosis for this admission?: Yes (4) UTI (urinary tract infection) Is this a current diagnosis for this admission?: Yes - Additional Information Resuscitation Status: Full Code Discharge Diet: Regular Discharge Activity: Activity As Tolerated Home Medications: Multivitamin [Multivitamins] 1 each PO DAILY 01/15/12 Promethazine HCl [Phenergan 25 mg Tablet] 12.5 mg PO Q6HP PRN #30 tablet Tramadol HCl [Ultram 50 mg Tablet] 50 mg PO Q4HP PRN #14 tablet 02/04/17 History of Present Illness History of Present Illness: KAYLEEN ENRIQUEZ is a 57 year old female who has a history of pancreatitis with a pseudocyst that has been followed at [facility] who presented with a 3 day history of epigastric pain. The patient was found to have acute pancreatitis and also was found to have a 6 cm pancreatic cyst with some surrounding inflammation and fluid. The patient is admitted for treatment of the pancreatitis. Hospital Course Hospital Course: 57-year-old female with history of pancreatitis and pseudocyst in the past who presented with a 3 day history of epigastric pain. Patient was found to have acute pancreatitis. This was treated with bowel rest, IV fluids and narcotics. The patient had complete resolution of her abdominal pain but continued to have a lipase of over thousand. Given the fact that she clinically had improved it was felt that she could tolerate a diet which she did and was sent home. The patient when she presented also was found to have a 6 cm pancreatic cyst with some surrounding inflammation. This is most likely the cause for her continued elevation of lipase in spite of her clinically resolving. Patient has been seen at [facility] before for this. Her abdominal exam has completely normalized and at this time does not need any further workup of the pseudocyst. Because of her abdominal pain the patient was evaluated by gastroenterology and had an EGD which showed gastritis, duodenitis, antral ulcer , and gastroesophageal junction stricture. On the day of discharge patient was tolerating diet without any pain and decision made to discharge her to home. Patient was noted to have a urinary tract infection however cultures grew out Gardnerella and is felt most likely be a contaminant. Physical Exam Vital Signs: Temp Pulse Resp BP Pulse Ox 98.4 F 89 17 138/80 H 98 02/04/17 10:18 02/04/17 10:18 02/04/17 10:18 02/04/17 10:18 02/04/17 10:18 Intake & Output 02/03/17 02/04/17 02/05/17 06:59 06:59 06:59 Intake Total 1130 2250 300 Output Total 1250 400 Balance -120 1850 300 Weight 80.6 kg General appearance: PRESENT: no acute distress Eye exam: PRESENT: conjunctiva pink. ABSENT: scleral icterus Mouth exam: PRESENT: moist, tongue midline Neck exam: ABSENT: JVD Respiratory exam: PRESENT: clear to auscultation familia. ABSENT: rales, rhonchi, wheezes Cardiovascular exam: PRESENT: RRR. ABSENT: diastolic murmur, rubs, systolic murmur GI/Abdominal exam: PRESENT: normal bowel sounds, soft. ABSENT: distended, guarding, mass, organolmegaly, rebound, tenderness Extremities exam: ABSENT: calf tenderness, clubbing, pedal edema Neurological exam: PRESENT: alert, awake, oriented to person, oriented to place , oriented to time, oriented to situation, CN II-XII grossly intact. ABSENT: motor sensory deficit Psychiatric exam: PRESENT: appropriate affect Skin exam: PRESENT: dry, intact, warm. ABSENT: cyanosis, rash Results Laboratory Results: 02/04/17 06:41 02/04/17 06:41 02/04/17 02/04/17 02/04/17 05:14 05:14 06:41 WBC Cancelled 7.9 RBC Cancelled 4.25 Hgb Cancelled 13.0 Hct Cancelled 35.2 L MCV Cancelled 83 MCH Cancelled 30.6 MCHC Cancelled 36.9 H RDW Cancelled 13.9 Plt Count Cancelled 354 Seg Neutrophils % Cancelled 50.6 Lymphocytes % Cancelled 28.7 Monocytes % Cancelled 17.2 H Eosinophils % Cancelled 3.1 Basophils % Cancelled 0.4 Absolute Neutrophils Cancelled 4.0 Absolute Lymphocytes Cancelled 2.3 Absolute Monocytes Cancelled 1.4 Absolute Eosinophils Cancelled 0.2 Absolute Basophils Cancelled 0.0 Sodium Cancelled Potassium Cancelled Chloride Cancelled Carbon Dioxide Cancelled Anion Gap Cancelled BUN Cancelled Creatinine Cancelled Est GFR ( Amer) Cancelled Est GFR (Non-Af Amer) Cancelled Glucose Cancelled Calcium Cancelled Lipase Cancelled 02/04/17 06:41 WBC RBC Hgb Hct MCV MCH MCHC RDW Plt Count Seg Neutrophils % Lymphocytes % Monocytes % Eosinophils % Basophils % Absolute Neutrophils Absolute Lymphocytes Absolute Monocytes Absolute Eosinophils Absolute Basophils Sodium 140.4 Potassium 3.9 Chloride 100 Carbon Dioxide 30 Anion Gap 10 BUN 10 Creatinine 0.66 Est GFR ( Amer) > 60 Est GFR (Non-Af Amer) > 60 Glucose 98 Calcium 9.6 Lipase 1044.9 H 01/31/17 07:16 Troponin I < 0.012 Impressions: Abdomen/Pelvis CT 01/30/17 21:27 IMPRESSION: 6.3 cm complex cystic lesion in the distal body of the pancreas, likely pseudocyst, with moderate left upper quadrant adjacent inflammation - fluid. Qualifiers PATEINT BEING DISCHARGED WITH ANY OF THE FOLLOWING DIAGNOSIS?: No Plan Discharge Plan: Patient will follow up with gastrology and primary care in the next 1-2 weeks. Time Spent: Less than 30 Minutes
== END 2017-02-04 11:10 | disposition home or self-care (01) | DRG 439 ==
LOC: ER 19:41 → EH 01-31 00:17 → UNDOADMIN 01-31 00:17 → 4N 01-31 01:59 → EH 01-31 01:59 → 4N 01-31 05:04 → EH 01-31 05:04
PROVIDERS: ADMIT Family Medicine; ATTEND Family Medicine
PROC: 0DB68ZX Excision of Stomach, Via Natural or Artificial Opening Endoscopic, Diagnostic (ICD-10-PCS; principal; 2017-01-31 18:00)
DX: K85.80 Other acute pancreatitis without necrosis or infection (principal); K86.2 Cyst of pancreas; M25.512 Pain in left shoulder; K29.70 Gastritis, unspecified, without bleeding; K29.80 Duodenitis without bleeding; K22.2 Esophageal obstruction; K44.9 Diaphragmatic hernia without obstruction or gangrene; K25.9 Gastric ulcer, unspecified as acute or chronic, without hemorrhage or perforation; Z79.899 Other long term (current) drug therapy; Z88.5 Allergy status to narcotic agent; B96.89 Other specified bacterial agents as the cause of diseases classified elsewhere
CPT/HCPCS: 36415; 43239; 74177; 80048; 80053; 80061; 80076; 81001; 82550; 83690; 83735; 84484; 85025; 85027; 86301; 87040; 87086; 88305; 93005; 93010; 94799; 96361; 96374; 96375; 99285; J0171; J0696; J1610; J1650; J2250; J2270; J2310; J2405; J3010; J3490; J7030

== ENCOUNTER → 2017-08-18 | Outpatient (CLI) | payer OTHER, BC ==
--- NOTE | 2017-08-18 16:00 | WOMENS IMAGING REPORT ---
EXAM DESCRIPTION: BILAT SCREENING MAMMO W/CAD COMPLETED DATE/TIME: 08/18/2017 8:37 am REASON FOR STUDY: ENCNTR SCREEN MAMMOGRAM FOR MALIGNANT NEOPLASM OF BREAST Z12.31 ENCNTR SCREEN TERRI MOGRAM FOR MALIGNANT NEOPLASM OF CARMELITA COMPARISON: 2013 to 2016 TECHNIQUE: Standard craniocaudal and mediolateral oblique views of each breast recorded using Afraxisa l acquisition. LIMITATIONS: None. FINDINGS: Findings present which are benign by mammographic criteria. No suspicious masses, calcifi cations or architectural distortion. Pertinent benign findings: Surgical changes on the left. Read with the assistance of CAD. .[facility] - R2 Cenova Version 1.3 .[facility] Imaging - R2 Cenova Version 1.3 .[facility] Imaging - R2 Cenova Version 2.4 .[facility] - R2 Cenova Version 2.4 .[facility] - R2 Sales Performance Manager Version 9.2 Benign mammographic findings may include one or more of the following: Smooth masses, popcorn/rim/co arse calcifications, asymmetries, post-procedure changes, and lesions with long-standing stability. IMPRESSION: BENIGN MAMMOGRAPHIC FINDINGS. BIRADS 2 BREAST DENSITY: c. The breasts are heterogeneously dense, which may obscure small masses. BIRAD: 2 BENIGN FINDING(S) RECOMMENDATION: ROUTINE SCREENING COMMENT: The patient has been notified of the results by letter per SA requirements. Additional no tification policies are in place for contacting patient with suspicious or incomplete findings. Quality ID #225: The [employer] recommends an annual screening mammogram for women aged 40 years or over. This facility utilizes a reminder system to ensure that all patients receive reminder letters, and/or direct phone calls for appointments. This includes reminders for routine scr eening mammograms, diagnostic mammograms, or other Breast Imaging Interventions when appropriate. Th is patient will be placed in the appropriate reminder system. The [employer] (ACR) has developed recommendations for screening MRI of the breast s in certain patient populations, to be used in conjunction with mammography. Breast MRI surveillanc e may be appropriate for women with more than 20% lifetime risk of developing breast cancer as deter mined by genetic testing, significant family history of the disease, or history of mantle radiation f or Hodgkins Disease. ACR Practice Guidelines 2008. TECHNICAL DOCUMENTATION: FINDING NUMBER: (1) ASSESSMENT: (1) JOB ID: [id number] [employer]- All Rights Reserved Reading location - IP/workstation name: [email or web address]
== END ==
LOC: WI 08:09
PROVIDERS: ATTEND Nurse Practitioner Primary Care
DX: Z12.31 Encounter for screening mammogram for malignant neoplasm of breast (principal)
CPT/HCPCS: 77067

== ENCOUNTER → 2018-06-13 | Outpatient (CLI) | payer OTHER, BC ==
--- NOTE | 2018-06-13 10:50 | WOMENS IMAGING REPORT ---
EXAM DESCRIPTION: 3D DX MAMMO BILAT COMPLETED DATE/TIME: 06/13/2018 10:04 am REASON FOR STUDY: N64.9 DISORDER OF BREAST, UNSPECIFIED N64.9 DISORDER OF BREAST, UNSPECIFIED Z85.3 PERSONAL HISTORY OF MALIGNANT NEOPLASM OF BREAST M89.9 DISORDER OF BONE, UNSPECIFIED COMPARISON: Multiple since 2007 TECHNIQUE: Standard craniocaudal and mediolateral oblique views of each breast recorded using digita l acquisition and breast tomosynthesis. Additional left breast and right breast 90 mediolateral views LIMITATIONS: None. FINDINGS: RIGHT BREAST MASSES: No suspicious masses. CALCIFICATIONS: No new or suspicious calcifications. ARCHITECTURAL DISTORTION: None. DEVELOPING DENSITY: None. ASYMMETRY: None noted. OTHER: No other significant findings. LEFT BREAST MASSES: No suspicious masses. CALCIFICATIONS: Coarse dense calcifications along a left breast 12 o'clock lumpectomy site ARCHITECTURAL DISTORTION: Post therapeutic architectural distortion left breast 12 o'clock position DEVELOPING DENSITY: None. ASYMMETRY: None noted. OTHER: No other significant finding. Read with the assistance of CAD: .[facility] - R2 Cenova Version 1.3 .[facility] Imaging - R2 Cenova Version 1.3 .[facility] Imaging - R2 Cenova Version 2.4 .[facility] - R2 Cenova Version 2.4 .[facility] - R2 Physical Ther Version 9.2 IMPRESSION: No mammographic/ tomosynthesis evidence for malignancy bilaterally. Post therapeutic ch anges left breast. BREAST DENSITY: c. The breasts are heterogeneously dense, which may obscure small masses. BIRAD: 2 Benign findings. RECOMMENDATION: RECOMMENDED FOLLOW UP: Please continue yearly bilateral screening mammography/tomosy nthesis in May 2019 SPECIFIC INTERVENTION/IMAGING/CONSULTATION RECOMMENDED:No additional intervention/ imaging/consultati on needed at this time. COMMUNICATION:The negative/benign results were communicated to the patient. COMMENT: The patient has been notified of the results by letter per SA requirements. Additional no tification policies are in place for contacting patient with suspicious or incomplete findings. Quality ID #225: The [employer] recommends an annual screening mammogram for women aged 40 years or over. This facility utilizes a reminder system to ensure that all patients receive reminder letters, and/or direct phone calls for appointments. This includes reminders for routine scr eening mammograms, diagnostic mammograms, or other Breast Imaging Interventions when appropriate. Th is patient will be placed in the appropriate reminder system. The [employer] (ACR) has developed recommendations for screening MRI of the breast s in certain patient populations, to be used in conjunction with mammography. Breast MRI surveillanc e may be appropriate for women with more than 20% lifetime risk of developing breast cancer as deter mined by genetic testing, significant family history of the disease, or history of mantle radiation f or Hodgkins Disease. ACR Practice Guidelines 2008. DBT Technology DBT is a type of tomographic mammography. With conventional mammography, overlapping breast tissue ma y make lesions difficult to detect, even with good compression. DBT uses an x-ray tube that rotates a round the breast, taking images at different angles. These images are then combined to create thin sl ices of the breast that the radiologist can view as a 3D reconstruction. The [employer] unit can perform full-field digital mammograms (2D imaging); or DBT (3D imaging); or both, in a combination mode that quickly performs both the mammogram and the tomosynthesis scan while the breast is still compressed. PQRS 6045F: Fluoroscopic imaging is not utilized for breast tomosynthesis. TECHNICAL DOCUMENTATION: FINDING NUMBER: (1) ASSESSMENT: (1) JOB ID: [id number] [employer]- All Rights Reserved Reading location - IP/workstation name: [email or web address]
== END ==
LOC: WI 09:09
PROVIDERS: ATTEND Nurse Practitioner Primary Care
DX: N64.89 Other specified disorders of breast (principal); Z85.3 Personal history of malignant neoplasm of breast; M89.9 Disorder of bone, unspecified
CPT/HCPCS: 77066; G0279; 77062

== ENCOUNTER → 2019-01-12 | Outpatient (CLI) | payer OTHER, BC ==
--- NOTE | 2019-01-12 13:48 | RADIOLOGY REPORT (SQ) ---
EXAM DESCRIPTION: NM WHOLE BODY BONE SCAN COMPLETED DATE/TIME: 01/12/2019 1:37 pm REASON FOR STUDY: C50.911 MALIGNANT NEOPLASM OF UNSPECIFIED SITE OF RIGHT FEMALE BREAST C50.911 MAL IGNANT NEOPLASM OF UNSP SITE OF RIGHT FEMALE KEANU R93.7 ABNORMAL FINDINGS ON DIAGNOSTIC IMAGING OF P RT MS SYS COMPARISON: CT abdomen pelvis dated 01/30/2017 RADIONUCLIDE AND DOSE: 20.6 millicuries Tc99m HDP. The route of agent administration: Intravenous. ADDITIONAL DRUGS AND DOSES: None. TECHNIQUE: Routine delayed images at 3 hour post radionuclide injection acquired of the bony skeleto n including anterior and posterior whole-body projections and additional focused images as needed. LIMITATIONS: None. FINDINGS: BONES: There is increased uptake in multiple dorsal as well as lumbar vertebral bodies. A ctivity is most prominent in T11, T12 and L5. Mild asymmetric uptake in the right distal clavicle. KIDNEYS: Symmetric excretion without obstruction. OTHER: No other significant finding. IMPRESSION: Suspicious uptake in the dorsal and lumbar spine. Metastatic disease cannot be excluded . Correlation with MRI air plain films is recommended. COMMENT: Quality measure 147: Current bone scan is compared with any available plain radiographs, p rior bone scans, and CT/MRI. TECHNICAL DOCUMENTATION: JOB ID: [id number] [email or web address]- All Rights Reserved Reading location - IP/workstation name: [email or web address]
== END ==
LOC: RAD 08:35
PROVIDERS: ATTEND Internal Medicine Hematology & Oncology
DX: C50.911 Malignant neoplasm of unspecified site of right female breast (principal)
CPT/HCPCS: 78306; A9561; Q9969

== ENCOUNTER → 2019-01-17 | Outpatient (CLI) | payer OTHER, BC ==
--- NOTE | 2019-01-17 10:11 | RADIOLOGY REPORT (SQ) ---
EXAM DESCRIPTION: CT CHEST WITH; CT ABD/PELVIS WITH IV ORAL COMPLETED DATE/TIME: 01/17/2019 9:48 am REASON FOR STUDY: (Z85.3)PERSONAL HISTORY OF MALIGNANT NEOPLASM OF BREAST Z85.3 PERSONAL HISTORY OF MALIGNANT NEOPLASM OF BREAST CONTRAST TYPE AND DOSE: contrast/concentration: Isovue 350.00 mg/ml; Total Contrast Delivered: 78.0 ml; Total Saline Delivered: 67.0 ml RENAL FUNCTION: Creatinine 0.6 COMPARISON: 01/15/2012, 01/30/2017 TECHNIQUE: CT scan of the chest performed using helical scanning technique with dynamic intravenous contrast injection. Images reviewed with lung, soft tissue and bone windows. Reconstructed coronal a nd sagittal MPR images reviewed. All images stored on PACS. All CT scanners at this facility use dose modulation, iterative reconstruction, and/or weight based d osing when appropriate to reduce radiation dose to as low as reasonably achievable (ALARA). [facility]: Dose Right [facility]: CareDose [facility]: Dose Right [facility]: Teradose 4D [facility]: Smart Technologies RADIATION DOSE: CT Rad equipment meets quality standard of care and radiation dose reduction techniq ues were employed. CTDIvol: 6.6 - 7.0 mGy. DLP: 894 mGy-cm. . LIMITATIONS: None. FINDINGS: AXILLAE: There is right axillary adenopathy. Largest node measures 1.4 cm in diameter. CHEST WALL: Postsurgical changes in the left breast. LUNGS: Probable scarring in the left lung apex. PLEURA: No effusions. No calcifications. THYROID: No masses or significant asymmetry. HILAR AND MEDIASTINAL STRUCTURES: No identified masses or abnormal nodes. AORTA AND GREAT VESSELS: No aneurysm. No dissection. PULMONARY ARTERIES: No identified pulmonary emboli. Study not optimized for the pulmonary arteries. HEART: No pericardial effusion. HARDWARE AND LIFELINES: None. BONES: There are lytic lesions in both T11 and T12 consistent with metastatic disease. OTHER: No other significant finding. IMPRESSION: Metastatic disease involving the bodies of T10 and T11. COMPARISON: None. RADIATION DOSE: CT Rad equipment meets quality standard of care and radiation dose reduction techniq ues were employed. CTDIvol: 6.6 - 7.0 mGy. DLP: 894 mGy-cm. mGy. TECHNIQUE: CT scan of the abdomen and pelvis performed with intravenous and oral contrast using jeremías ginny scanning technique with dynamic intravenous contrast injection. Images reviewed with lung, soft tissue and bone windows. Reconstructed coronal and sagittal MPR images reviewed. Delayed images for evaluation of the urinary system also acquired and evaluated. All images stored on PACS. All CT scanners at this facility use dose modulation, iterative reconstruction, and/or weight based d osing when appropriate to reduce radiation dose to as low as reasonably achievable (ALARA). [facility]: Dose Right [facility]: SureCare [facility]: Dose Right [facility]: Teradose 4D [facility]: [employer] FINDINGS: LIVER: Normal size. No masses. No dilated ducts. SPLEEN: Normal size. No focal lesions. PANCREAS: Cystic lesion in the tail the pancreas is again noted. It measures 4.7 cm in greatest diam eter previously the lesion measures 6.6 cm. GALLBLADDER: No identified stones by CT criteria. No inflammatory changes to suggest cholecystitis. ADRENAL GLANDS: No significant masses or asymmetry. RIGHT KIDNEY AND URETER: No solid masses. There are small cortical cysts. No significant calcifica tions. No hydronephrosis or hydroureter. LEFT KIDNEY AND URETER: No solid masses. No significant calcifications. No hydronephrosis or hydr oureter. AORTA AND VESSELS: No aneurysm. No dissection. Renal arteries, SMA, celiac without stenosis. RETROPERITONEUM: No retroperitoneal adenopathy, hemorrhage or masses. LARGE AND SMALL BOWEL: No dilatation. No masses. No wall thickening. APPENDIX: Normal. ABDOMINAL WALL: Umbilical hernia containing omental fat only. PERITONEAL CAVITY: No free air. No free fluid. No peritoneal implants or masses. PELVIS: Fibroid uterus. BONES: Mixed lytic and sclerotic changes in the body of L4 new from 2017 in suspicious for metastatic disease. There is sclerosis along the ilium adjacent to the SI joint which is stable from 2017 and most likely related to degenerative disease. There is a focal sclerotic focus in the right ilium whi ch is new suspicious for metastatic disease. OTHER: No other significant finding. IMPRESSION: 1. Cystic lesion in the tail the pancreas has decreased in size. It now measures 4.7 cm in size. 2. Bony metastasis involving body of L5 and a right ilium. TECHNICAL DOCUMENTATION: JOB ID: [id number] Quality ID # 436: Final reports with documentation of one or more dose reduction techniques (e.g., Au tomated exposure control, adjustment of the mA and/or kV according to patient size, use of iterative reconstruction technique) 2010 [employer]- All Rights Reserved Reading location - IP/workstation name: [email or web address]
== END ==
LOC: RAD 09:10
PROVIDERS: ATTEND Internal Medicine Hematology & Oncology
DX: Z85.3 Personal history of malignant neoplasm of breast (principal)
CPT/HCPCS: 71260; 74177; 82565

== ENCOUNTER → 2019-07-06 | Outpatient (CLI) | payer OTHER, BC ==
--- NOTE | 2019-07-06 17:17 | WOMENS IMAGING REPORT ---
EXAM DESCRIPTION: 3D SCREENING MAMMO BILAT COMPLETED DATE/TIME: 07/06/2019 8:46 am REASON FOR STUDY: Z12.31 SCREENING MAMMO Z12.31 ENCNTR SCREEN MAMMOGRAM FOR MALIGNANT NEOPLASM OF B RE COMPARISON: 2014 and subsequent. EXAM PARAMETERS: Standard craniocaudal and mediolateral oblique views of each breast recorded using digital acquisition and breast tomosynthesis. Read with the assistance of CAD. .[facility] - [place] [employer] Version 9.2 LIMITATIONS: None. FINDINGS: Findings present which are benign by mammographic criteria. No suspicious masses, calcific ations or architectural distortion. Pertinent benign findings: Volume loss, post treatment changes in the left breast. Includes calcific ations and distortion as well. Stable appearance. Benign mammographic findings may include one or more of the following: Smooth masses, popcorn/rim/coa rse calcifications, asymmetries, post-procedure changes, and lesions with long-standing stability. IMPRESSION: BENIGN MAMMOGRAPHIC FINDINGS. BIRADS 2 BREAST DENSITY: c. The breasts are heterogeneously dense, which may obscure small masses. BIRAD: ASSESSMENT: 2 BENIGN FINDING(S) RECOMMENDATION: ROUTINE SCREENING COMMENT: The patient has been notified of the results by letter per MQSA requirements. Additional no tification policies are in place for contacting patient with suspicious or incomplete findings. Quality ID #225: The [employer] recommends an annual screening mammogram for women aged 40 years or over. This facility utilizes a reminder system to ensure that all patients receive reminder letters, and/or direct phone calls for appointments. This includes reminders for routine scr eening mammograms, diagnostic mammograms, or other Breast Imaging Interventions when appropriate. Th is patient will be placed in the appropriate reminder system. TECHNICAL DOCUMENTATION: FINDING NUMBER: (1) ASSESSMENT: (1) JOB ID: [id number] 2010 [employer]- All Rights Reserved Reading location - IP/workstation name: [email or web address]
== END ==
LOC: WI 08:20
PROVIDERS: ATTEND Nurse Practitioner Primary Care
DX: Z12.31 Encounter for screening mammogram for malignant neoplasm of breast (principal)
CPT/HCPCS: 77063; 77067

== ENCOUNTER → 2019-10-05 | Outpatient (CLI) | payer OTHER, BC | LOC: RAD 12:05 | PROVIDERS: ATTEND Surgery | DX: C77.3 Secondary and unspecified malignant neoplasm of axilla and upper limb lymph nodes (principal) | CPT/HCPCS: 82565; 77049; A9576 ==

== ENCOUNTER → 2019-10-09 | Outpatient (CLI) | payer OTHER, BC ==
--- NOTE | 2019-10-09 13:00 | RADIOLOGY REPORT (SQ) ---
EXAM DESCRIPTION: CT CHEST WITH IMAGES COMPLETED DATE/TIME: 10/09/2019 10:24 am REASON FOR STUDY: (C77.3)SEC AND UNSP MALIG NEOPLASM OF AXILLA AND UPPER LIMB NODES C77.3 SEC AND U NSP MALIG NEOPLASM OF AXILLA AND UPPER LIMB N COMPARISON: 01/17/2019 TECHNIQUE: CT scan of the chest performed using helical scanning technique with dynamic intravenous contrast injection. Images reviewed with lung, soft tissue and bone windows. Reconstructed coronal and sagittal MPR and MIP images reviewed. All images stored on PACS. All CT scanners at this facility use dose modulation, iterative reconstruction, and/or weight based d osing when appropriate to reduce radiation dose to as low as reasonably achievable (ALARA). [facility]: Dose Right [facility]: CareDose [facility]: Dose Right [facility]: Teradose 4D [facility]: [place] [employer] CONTRAST TYPE AND DOSE: 78 cc Omnipaque 350- low osmolar. RENAL FUNCTION: Creatinine 0.7 RADIATION DOSE: CT Rad equipment meets quality standard of care and radiation dose reduction techniq ues were employed. CTDIvol: 5.3 - 6.0 mGy. DLP: 821 mGy-cm. . LIMITATIONS: None. FINDINGS: LUNGS AND PLEURA: There is scarring in the left apex. No pulmonary nodules. No acute inf iltrate or effusion. HILAR AND MEDIASTINAL STRUCTURES: No identified masses or abnormal nodes. HEART AND VASCULAR STRUCTURES: No aneurysm or dissection. No central pulmonary emboli. No pericardi al effusion. HARDWARE: None in the chest. UPPER ABDOMEN: See separate report of the CT of the abdomen. THYROID AND OTHER SOFT TISSUES: No masses. No adenopathy. BONES: There are lytic lesions in multiple vertebrae. OTHER: Right axillary adenopathy. There is a 24 mm node. Left mastectomy changes. IMPRESSION: Increasing osseous metastases. Increasing right axillary adenopathy. TECHNICAL DOCUMENTATION: JOB ID: [id number] Quality ID # 436: Final reports with documentation of one or more dose reduction techniques (e.g., Au tomated exposure control, adjustment of the mA and/or kV according to patient size, use of iterative reconstruction technique) 2010 [employer]- All Rights Reserved Reading location - IP/workstation name: [email or web address]
--- NOTE | 2019-10-09 13:19 | RADIOLOGY REPORT (SQ) ---
EXAM DESCRIPTION: CT ABD/PELVIS WITH IV ONLY IMAGES COMPLETED DATE/TIME: 10/09/2019 10:24 am REASON FOR STUDY: (C77.3)SEC AND UNSP MALIG NEOPLASM OF AXILLA AND UPPER LIMB NODES C77.3 SEC AND U NSP MALIG NEOPLASM OF AXILLA AND UPPER LIMB N COMPARISON: 01/17/2019 TECHNIQUE: CT scan of the abdomen and pelvis performed using helical scanning technique with dynamic intravenous contrast injection. No oral contrast. Images reviewed with lung, soft tissue, and bone windows. Reconstructed coronal and sagittal MPR images reviewed. Delayed images for evaluation of the urinary system also acquired. All images stored on PACS. All CT scanners at this facility use dose modulation, iterative reconstruction, and/or weight based d osing when appropriate to reduce radiation dose to as low as reasonably achievable (ALARA). [facility]: Dose Right [facility]: CareDose [facility]: Dose Right [facility]: Teradose 4D [facility]: Ubiquisys CONTRAST TYPE AND DOSE: contrast/concentration: Isovue 350.00 mg/ml; Total Contrast Delivered: 78.0 ml; Total Saline Delivered: 67.0 ml RENAL FUNCTION: Creatinine 0.7 RADIATION DOSE: . LIMITATIONS: None. FINDINGS: LOWER CHEST: See separate report of the CT of the chest. LIVER: Normal size. No masses. No dilated ducts. SPLEEN: Normal size. No focal lesions. PANCREAS: There is apparently been resection of a portion the tail of the pancreas. There is a cysti c lesion in the tail of the pancreas that measures 60 by 44 x 38 mm. This is stable. GALLBLADDER: No identified stones by CT criteria. No inflammatory changes to suggest cholecystitis. ADRENAL GLANDS: No significant masses or asymmetry. RIGHT KIDNEY AND URETER: No solid masses. No significant calcifications. No hydronephrosis or hyd roureter. LEFT KIDNEY AND URETER: No solid masses. No significant calcifications. No hydronephrosis or hydr oureter. AORTA AND VESSELS: No aneurysm. No dissection. Renal arteries, SMA, celiac without stenosis. RETROPERITONEUM: No retroperitoneal adenopathy, hemorrhage or masses. BOWEL AND PERITONEAL CAVITY: No masses or inflammatory changes. No free fluid or peritoneal masses. APPENDIX: Normal. PELVIS: Enlarged uterus, likely uterine fibroids. ABDOMINAL WALL: No masses. No hernias. BONES: There are lytic lesions in multiple vertebrae. These have increased in number. OTHER: No other significant finding. IMPRESSION: 1. Stable cystic lesion in the tail of the pancreas. 2. Increasing osseous metastatic disease. TECHNICAL DOCUMENTATION: JOB ID: [id number] Quality ID # [id number]: Final reports with documentation of one or more dose reduction techniques (e.g., Au tomated exposure control, adjustment of the mA and/or kV according to patient size, use of iterative reconstruction technique) 2010 [employer]- All Rights Reserved Reading location - IP/workstation name: [email or web address]
--- NOTE | 2019-10-09 14:34 | RADIOLOGY REPORT (SQ) ---
EXAM DESCRIPTION: NM WHOLE BODY BONE SCAN IMAGES COMPLETED DATE/TIME: 10/09/2019 2:18 pm REASON FOR STUDY: (C77.3)SEC AND UNSP MALIG NEOPLASM OF AXILLA AND UPPER LIMB NODES C77.3 SEC AND U NSP MALIG NEOPLASM OF AXILLA AND UPPER LIMB N COMPARISON: 01/12/2019 RADIONUCLIDE AND DOSE: 20 millicuries Tc99m HDP. The route of agent administration: Intravenous. ADDITIONAL DRUGS AND DOSES: None. TECHNIQUE: Routine delayed images at 3 hours post radionuclide injection acquired of the bony skelet on including anterior and posterior whole-body projections and additional focused images as needed. LIMITATIONS: None. FINDINGS: BONES: There multiple areas of increased uptake in the calvarium, sternum, spine, and ribs . Significant increase in findings since the earlier study. KIDNEYS: Symmetric excretion without obstruction. OTHER: No other significant finding. IMPRESSION: Increasing metastatic disease to bone. COMMENT: Quality measure 147: Current bone scan is compared with any available plain radiographs, p rior bone scans, and CT/MRI. TECHNICAL DOCUMENTATION: JOB ID: [id number] 2010 [employer]- All Rights Reserved Reading location - IP/workstation name: [email or web address]
== END ==
LOC: RAD 09:36
PROVIDERS: ATTEND Surgery
DX: C77.3 Secondary and unspecified malignant neoplasm of axilla and upper limb lymph nodes (principal)
CPT/HCPCS: 82565; 78306; 71260; 74177; A9561; Q9969

== ENCOUNTER → 2019-10-18 | Outpatient (CLI) | payer OTHER, BC ==
--- NOTE | 2019-10-18 13:15 | RADIOLOGY REPORT (SQ) ---
EXAM DESCRIPTION: MRI THORACIC SPINE COMBO IMAGES COMPLETED DATE/TIME: 10/18/2019 9:55 am REASON FOR STUDY: C50.911 MALIGNANT NEOPLASM OF UNSP SITE OF RIGHT FEMALE BREAST, C79.51 SECO C50.91 1 MALIGNANT NEOPLASM OF UNSP SITE OF RIGHT FEMALE KEANU C79.51 SECONDARY MALIGNANT NEOPLASM OF BONE G95.20 UNSPECIFIED CORD COMPRESSION COMPARISON: Bone scan and CT chest dated 10/09/2019. TECHNIQUE: Sagittal and Axial imaging includes T1, T2, STIR and gradient echo sequences. T1 post ga dolinium sequences. CONTRAST TYPE AND DOSE: 10 mL Dotarem. RENAL FUNCTION: Not indicated. ACR Type II contrast agent associated with few, if any, unconfounded cases of NSF LIMITATIONS: None. FINDINGS: LOCALIZER: No worrisome findings. ALIGNMENT: Normal. VERTEBRAE: Intact. BONE MARROW: There is abnormal marrow replacement with enhancing soft tissue involving numerous verte brae, including the bodies of T4, T 5, T6, T7, T 8, T 10, and T11. There is expansile soft tissue in volving the backwall of the T5 vertebral body, encroaching upon the spinal canal and impinging the th oracic cord. Similar but less prominent involvement of the T10 and T11 vertebral bodies. HARDWARE: None in the spine. CORD: Normal in size and signal intensity. SOFT TISSUES: No soft tissue masses. THORACIC DISCS T1-T12: Multilevel disc disease, particularly at T7-T8. LOWER CERVICAL: Incompletely imaged. No significant spinal stenosis or exit foraminal stenosis. UPPER LUMBAR: See separate report of the MRI and lumbar spine. ENHANCEMENT: No abnormal enhancement. OTHER: No other significant finding. IMPRESSION: METASTATIC DISEASE INVOLVING NUMEROUS VERTEBRAE. AT T5 THERE IS PROMINENT EXPANSILE SOF T TISSUE INVOLVING THE BACKWALL OF THE VERTEBRAL BODY WITH ENCROACHMENT OF THE SPINAL CANAL AND IMPIN GEMENT OF THE THORACIC CORD. SIMILAR BUT LESS SEVERE INVOLVEMENT OF THE LOWER THORACIC SPINE. COMMENT: The findings were sent to the Radiology Results Communication Center at 13:09 on 10/18/2019 to be communicated to a licensed caregiver. TECHNICAL DOCUMENTATION: JOB ID: [id number] 2010 [employer]- All Rights Reserved Reading location - IP/workstation name: [email or web address]
--- NOTE | 2019-10-18 13:24 | RADIOLOGY REPORT (SQ) ---
EXAM DESCRIPTION: MRI LUMBAR SPINE COMBO IMAGES COMPLETED DATE/TIME: 10/18/2019 9:55 am REASON FOR STUDY: C50.911 MALIGNANT NEOPLASM OF UNSP SITE OF RIGHT FEMALE BREAST, C79.51 SECO C50.91 1 MALIGNANT NEOPLASM OF UNSP SITE OF RIGHT FEMALE KEANU C79.51 SECONDARY MALIGNANT NEOPLASM OF BONE G95.20 UNSPECIFIED CORD COMPRESSION COMPARISON: Bone scan and CT abdomen and pelvis dated 10/09/2019. TECHNIQUE: Sagittal and Axial imaging includes T1, T1 post gadolinium, T2, STIR and gradient echo se quences. CONTRAST TYPE AND DOSE: 10 mL Dotarem. RENAL FUNCTION: Not indicated. ACR Type II contrast agent associated with few, if any, unconfounded cases of NSF LIMITATIONS: None. FINDINGS: VISUALIZED UPPER ABDOMEN: Limited evaluation. Right renal cyst. SEGMENTATION: No transitional anatomy. The lowest well-developed disc space is labeled L5-S1. ALIGNMENT: Anatomic. VERTEBRAE: There is abnormal marrow replacement with enhancement involving a majority majority of the L3, L 4, and L5 vertebral bodies. This also involves the posterior elements and posterior spinous p rocesses. There is moderate spinal stenosis at the L4 level secondary to metastatic involvement of t he body and posterior elements of the L4 vertebra. BONE MARROW: Normal. No marrow replacement or reactive changes. DISC SIGNAL: Normal. No significant abnormal signal or loss of height. HARDWARE: None in the spine. CORD AND CONUS: Normal in size and signal intensity. Conus at the appropriate level. SOFT TISSUES: No aortic aneurysm seen. No bulky retroperitoneal adenopathy or mass. There are severa l large pelvic masses, presumably in the uterus, not completely imaged. No paraspinal mass or fluid. L1-L2: No significant spinal stenosis or exit foraminal stenosis. L2-L3: Mild disc bulge. No significant spinal stenosis or exit foraminal stenosis. L3-L4: Mild disc bulge. Moderate facet arthropathy. No significant spinal stenosis or exit foramina l stenosis. L4-L5: Mild disc bulge. Moderate facet arthropathy. Spinal stenosis and bilateral exit foraminal st enosis secondary to combination of degenerative changes and bony metastatic involvement. L5-S1: No significant spinal stenosis or exit foraminal stenosis. LOWER THORACIC: See the separate report of the MRI of the thoracic spine. SACRUM: There placement consistent with metastatic involvement, particularly on the right side. ENHANCEMENT: No abnormal enhancement. OTHER: No other significant findings. IMPRESSION: EXTENSIVE BONY METASTASES, PARTICULARLY OF THE L3, L 4, AND L5 VERTEBRAE. THERE IS INVO LVEMENT OF THE VERTEBRAL BODIES AND THE POSTERIOR ELEMENTS, RESULTING IN MODERATE SPINAL STENOSIS AT L4. TECHNICAL DOCUMENTATION: JOB ID: [id number] 2010 [employer]- All Rights Reserved Reading location - IP/workstation name: [email or web address]
== END ==
LOC: RAD 08:09
PROVIDERS: ATTEND Internal Medicine Hematology & Oncology
DX: C50.911 Malignant neoplasm of unspecified site of right female breast (principal); C79.51 Secondary malignant neoplasm of bone; M47.816 Spondylosis without myelopathy or radiculopathy, lumbar region; M48.061 Spinal stenosis, lumbar region without neurogenic claudication
CPT/HCPCS: 72157; 72158; A9576

== ENCOUNTER 2019-11-08 22:10 | Emergency (ER) | payer OTHER, BC ==
--- NOTE | 2019-11-08 22:46 | ER Document Report ---
ED Medical Screen (RME) - General Chief Complaint: Chest Pain Stated Complaint: CHEST PAIN Time Seen by Provider: 11/08/19 22:40 Primary Care Provider: ANNEL KING MD [Primary Care Provider] - Follow up as needed Mode of Arrival: Ambulatory Information source: Patient Notes: HPI; 59-year-old female presents emergency room complaining of intermittent midsternal chest pressure for the past 2 days. Worse with eating and drinking. Has tried taking Gas-X without relief. Denies nausea, vomiting, diaphoresis. Cardiac work-up initiated PE: Alert and oriented x3. Mild distress noted. Lungs: Clear to auscultation without rales rhonchi wheezes. Heart: Regular rate rhythm without murmurs, rubs, gallops. I have greeted and performed a rapid initial assessment of this patient. A comprehensive ED assessment and evaluation of the patient, analysis of test results and completion of the medical decision making process will be conducted by additional ED providers. I have specifically instructed the patient or family members with the patient to immediately return to any nursing staff should anything change in the patient's condition or with their chief complaint. TRAVEL OUTSIDE OF THE [place] IN LAST 30 DAYS: No - Related Data Allergies/Adverse Reactions: oxycodone [Oxycodone] Adverse Reaction (Mild, Verified 11/08/19 22:36) mildly dizzy Home Medications: METFORMIN Past Medical History - Social History Frequency of alcohol use: None Drug Abuse: None - Past Medical History Cardiac Medical History: Denies: Hx Atrial Fibrillation, Hx Congestive Heart Failure, Hx Coronary Artery Disease, Hx DVT, Hx Heart Attack, Hx Hypercholesterolemia, Hx Hypertension, Hx Pulmonary Embolism Pulmonary Medical History: Denies: Hx Asthma, Hx COPD, Hx Sleep Apnea Neurological Medical History: Denies: Hx Seizures Endocrine Medical History: Denies: Hx Diabetes Mellitus Type 1, Hx Diabetes Mellitus Type 2, Hx Hyperthyroidism, Hx Hypothyroidism Renal/ Medical History: Denies: Hx Peritoneal Dialysis Malignancy Medical History: Reports: Hx Breast Cancer - Left GI Medical History: Reports: Hx Gastroesophageal Reflux Disease. Denies: Hx Cirrhosis, Hx Hepatitis Psychiatric Medical History: Denies: Hx Depression Infectious Medical History: Denies: Hx Hepatitis Past Surgical History: Reports: Hx Abdominal Surgery - hernia repair, Hx Breast Surgery - left lumpectomy, Hx Herniorrhaphy, Other - Colonoscopic polypectomy 2013. Left breast lumpectomy with chemo, XRT. Denies: Hx Hysterectomy - Immunizations Hx Diphtheria, Pertussis, Tetanus Vaccination: Yes Physical Exam - Vital signs Vitals: Temp Pulse Resp BP Pulse Ox 98.6 F 103 H 18 162/94 H 98 11/08/19 22:21 11/08/19 22:21 11/08/19 22:21 11/08/19 22:21 11/08/19 22:21 Course - Vital Signs Vital signs: Temp Pulse Resp BP Pulse Ox 98.6 F 103 H 18 162/94 H 98 11/08/19 22:37 11/08/19 22:21 11/08/19 22:21 11/08/19 22:21 11/08/19 22:21 Doctor's Discharge - Discharge Referrals: ANNEL KING MD [Primary Care Provider] - Follow up as needed
--- NOTE | 2019-11-09 00:45 | RADIOLOGY REPORT (SQ) ---
EXAM CLINICAL INDICATION: chest pain. TECHNIQUE: Frontal and lateral views were obtained of the chest COMPARISON: None. FINDINGS: The cardiomediastinal silhouette is top normal. The lungs are grossly clear. No evidence of effusion or pneumothorax. Mild chronic parenchymal lung change. Postsurgical change left axilla and left breast. . IMPRESSION: No evidence of active intrathoracic disease .
[2019-11-09 01:42] LABS: HEMATOCRIT 39.7 % (36.0-47.0); HEMOGLOBIN 14.1 g/dL (12.0-15.5); MEAN CORPUSCULAR HEMOGLOBIN 29.7 pg (27.0-33.4); MEAN CORPUSCULAR HGB CONC 35.6 g/dL (32.0-36.0); MEAN CORPUSCULAR VOLUME 83 fl (80-97); PLATELET COUNT 366 10^3/uL (150-450); RED BLOOD COUNT 4.76 10^6/uL (3.72-5.28); RED CELL DISTRIBUTION WIDTH 15.5 % (11.5-14.0); WHITE BLOOD COUNT 6.3 10^3/uL (4.0-10.5)
[2019-11-09 01:52] LABS: ALBUMIN 4.6 g/dL (3.5-5.0); ALKALINE PHOSPHATASE 188 U/L (38-126); ANION GAP 10 (5-19); ASPARTATE AMINO TRANSFERASE 39 U/L (14-36); BILIRUBIN,TOTAL 0.7 mg/dL (0.2-1.3); BLOOD UREA NITROGEN 13 mg/dL (7-20); CARBON DIOXIDE 28 mmol/L (22-30); CHLORIDE 100 mmol/L (98-107); GLUCOSE 146 mg/dL (75-110); POTASSIUM 4.2 mmol/L (3.6-5.0)
[2019-11-09 02:08] LABS: ABSOLUTE LYMPHOCYTES# (MANUAL) 0.7 10^3/uL (0.5-4.7); ABSOLUTE MONOCYTES # (MANUAL) 1.1 10^3/uL (0.1-1.4); BAND NEUTROPHILS % (MANUAL) 2 % (3-5); BASOPHILS % (MANUAL) 0 % (0-2); EOSINOPHILS % (MANUAL) 0 % (0-6); LYMPHOCYTES % (MANUAL) 11 % (13-45); MONOCYTES % (MANUAL) 18 % (3-13); SEGMENTED NEUTROPHILS % (MAN) 69 % (42-78); TOTAL CELLS COUNTED 100
[2019-11-09 02:10] LABS: OVALOCYTES SLIGHT; PLATELET COMMENT ADEQUATE; POIKILOCYTOSIS SLIGHT; TEAR DROP CELLS SLIGHT; TOXIC GRANULATION SLIGHT; TOXIC VACUOLATION PRESENT
[2019-11-09] MEDS ORDERED: MAG HYDROX/AL HYDROX/SIMETH SUSP 30 ML UDCUP PO ONE (03:49)
[2019-11-09] MEDS ORDERED: FAMOTIDINE 20 MG TABLET PO ONE (03:49)
--- NOTE | 2019-11-09 03:51 | ER Document Report ---
ED General - General Chief Complaint: Chest Pain Stated Complaint: CHEST PAIN Time Seen by Provider: 11/08/19 22:40 Primary Care Provider: ANNEL KING MD [Primary Care Provider] - Follow up as needed Mode of Arrival: Ambulatory Notes: 59-year-old lady with metastatic breast cancer presents with chest discomfort. She describes it as indigestion, like her food is coming back up. It happens mostly when she eats but sometimes when she lies flat or jostles herself walking or climbing stairs. Is not reliably exertional. It does not radiate is not pleuritic she has no shortness of breath cough hemoptysis or leg swelling. She getting radiation but no chemo. She denies fever. TRAVEL OUTSIDE OF THE [place] IN LAST 30 DAYS: No - Related Data Allergies/Adverse Reactions: oxycodone [Oxycodone] Adverse Reaction (Mild, Verified 11/08/19 22:36) mildly dizzy Home Medications: METFORMIN Past Medical History - General Information source: Patient - Social History Smoking Status: Never Smoker Frequency of alcohol use: None Drug Abuse: None Family History: Reviewed & Not Pertinent Patient has homicidal ideation: No - Past Medical History Cardiac Medical History: Denies: Hx Atrial Fibrillation, Hx Congestive Heart Failure, Hx Coronary Artery Disease, Hx DVT, Hx Heart Attack, Hx Hypercholesterolemia, Hx Hypertension, Hx Pulmonary Embolism Pulmonary Medical History: Denies: Hx Asthma, Hx COPD, Hx Sleep Apnea Neurological Medical History: Denies: Hx Seizures Endocrine Medical History: Denies: Hx Diabetes Mellitus Type 1, Hx Diabetes Mellitus Type 2, Hx Hyperthyroidism, Hx Hypothyroidism Renal/ Medical History: Denies: Hx Peritoneal Dialysis Malignancy Medical History: Reports: Hx Breast Cancer - Left GI Medical History: Reports: Hx Gastroesophageal Reflux Disease. Denies: Hx Cirrhosis, Hx Hepatitis Psychiatric Medical History: Denies: Hx Depression Infectious Medical History: Denies: Hx Hepatitis Past Surgical History: Reports: Hx Abdominal Surgery - hernia repair, Hx Breast Surgery - left lumpectomy, Hx Herniorrhaphy, Other - Colonoscopic polypectomy 2013. Left breast lumpectomy with chemo, XRT. Denies: Hx Hysterectomy - Immunizations Hx Diphtheria, Pertussis, Tetanus Vaccination: Yes Review of Systems - Review of Systems Notes: REVIEW OF SYSTEMS GEN: Denies fever, chills, weight loss ENT: Denies sore throat, nasal discharge, ear pain EYES: Denies blurry vision, eye pain, discharge CV: Chest discomfort RESP: Denies cough, shortness of breath, wheezing GI: Denies abdominal pain, nausea, vomiting, diarrhea MSK: Denies joint pain/swelling, edema, SKIN: Denies rash, skin lesions LYMPH: Denies swollen glands/lymph nodes NEURO: Denies headache, focal weakness or numbness, dizziness PSYCH: Denies depression, suicidal or homicidal ideation PHYSICAL EXAMINATION General: No acute distress, well-nourished Head: Atraumatic, normocephalic ENT: Mouth normal, oropharynx moist, no exudates or tonsillar enlargement Eyes: Conjunctiva normal, pupils equal, lids normal Neck: No JVD, supple, no guarding CVS: Normal rate, regular rhythm, no murmurs Resp: No resp distress, equal and normal breath sounds bilaterally GI: Nondistended, soft, no tenderness to palpation, no rebound or guarding Ext: No deformities, no edema, normal range of motion in upper and lower ext Back: No CVA or midline TTP Skin: No rash, warm Lymphatic: No lymphadeopathy noted Neuro: Awake, alert. Face symmetric. GCS 15. Physical Exam - Vital signs Vitals: Temp Pulse Resp BP Pulse Ox 98.6 F 103 H 18 162/94 H 98 11/08/19 22:21 11/08/19 22:21 11/08/19 22:21 11/08/19 22:21 11/08/19 22:21 Course - Re-evaluation Re-evalutation: 11/09/19 03:54 Patient presents with chest pain which sounds like GI related chest pain. She is not tender has no reliably exertional pain no pleuritic pain or shortness of breath. Her cardiac work-up labs and chest x-ray ordered at triage are normal including EKG and troponin. Alk phos slightly elevated likely secondary to known bony metastases. She has no right upper quadrant pain or nausea to suggest liver involvement or biliary pathology. I discussed at length with her regarding PE and her risk factors, she has declined CT scanning and would like to be discharged. I think this is reasonable as her risk of PE remains moderate her symptoms do not match up. I will give her Maalox and start her on an anta teodoro and refer her back to her oncologist. She was invited to return to the ED at any point if her change in symptoms or worsening symptoms. I have discussed with the patient there likely diagnosis, aftercare plan, follow-up plans and my usual and customary return precautions. They verbalized understanding of this. - Vital Signs Vital signs: Temp Pulse Resp BP Pulse Ox 98.6 F 102 H 18 137/80 H 98 11/08/19 22:37 11/09/19 01:31 11/09/19 01:31 11/09/19 01:31 11/09/19 01:31 - Laboratory Result Diagrams: 11/09/19 01:18 11/09/19 01:18 Laboratory results interpreted by me: 11/09/19 11/09/19 01:18 01:18 RDW 15.5 H Band Neutrophils % 2 L Lymphocytes % (Manual) 11 L Monocytes % (Manual) 18 H Glucose 146 H AST 39 H Alkaline Phosphatase 188 H Total Protein 9.0 H - Diagnostic Test Radiology reviewed: Image reviewed, Reports reviewed - EKG Interpretation by Me EKG shows normal: Sinus rhythm Rate: Normal Rhythm: NSR When compared to previous EKG there are: Previous EKG unavailable Additional EKG results interpreted by me: 11/09/19 03:[address] or T wave changes that are concerning for ischemia, right heart strain or pulmonary embolism Discharge - Discharge Clinical Impression: Chest pain Qualifiers: Chest pain type: chest pain on breathing Qualified Code(s): R07.1 - Chest pain on breathing Condition: Good Disposition: HOME, SELF-CARE Instructions: Chest Pain of Unclear Cause ([facility]), Prilosec (Acid Pump Inhibitor) ([facility]) Additional Instructions: As we discussed, heart problems have essentially been ruled out but we did not rule out a blood clot in your lungs. You expressed that you did not want to wait, and do this CAT scan. If your pain worsens or you cannot breathe or you get a fever cough please return to the ER immediately. Prescriptions: Esomeprazole Magnesium 20 mg PO DAILY #30 [email or web address] Referrals: ANNEL KING MD [Primary Care Provider] - Follow up as needed
[2019-11-09 04:15] VITALS: BP 154/87
--- NOTE | 2019-11-09 06:59 | EKG REPORT ---
SEVERITY:- ABNORMAL ECG - SINUS TACHYCARDIA LEFT ATRIAL ABNORMALITY BORDERLINE T WAVE ABNORMALITIES : Confirmed by: Milton Gentile MD 09-Nov-2019 06:59:05
== END 2019-11-09 04:14 | disposition home or self-care (01) ==
LOC: ER 22:10
DX: R07.1 Chest pain on breathing (principal); C50.919 Malignant neoplasm of unspecified site of unspecified female breast; C79.9 Secondary malignant neoplasm of unspecified site; Z88.8 Allergy status to other drugs, medicaments and biological substances; Z79.84 Long term (current) use of oral hypoglycemic drugs
CPT/HCPCS: 36415; 71046; 80053; 84484; 85025; 93005; 93010; 99285

== ENCOUNTER 2019-11-10 11:29 | Emergency (ER) | payer OTHER, BC ==
--- NOTE | 2019-11-10 12:11 | ER Document Report ---
ED Medical Screen (RME) - General Chief Complaint: Chest Pain Stated Complaint: CHEST PAIN Time Seen by Provider: 11/10/19 12:01 Primary Care Provider: ANNEL KING MD [Primary Care Provider] - Follow up as needed Notes: Patient is a 59-year-old female with a history of metastatic ductal carcinoma who is currently being treated with radiation and no chemotherapy. Patient reports she was seen here 2 days ago for chest pain. She states that she had a long wait and politely declined the CAT scan of her chest to rule out blood clot. Patient reports she feels like the pain is worse when she eats, and that eating or drinking exacerbates her chest pain as she does feel like there is a sensation of the food getting stuck. Patient denies choking. Patient states she feels like she needs to belch but cannot. Patient denies radiation of her chest pain. Patient denies shortness of breath. TRAVEL OUTSIDE OF THE [place] IN LAST 30 DAYS: No - Related Data Allergies/Adverse Reactions: oxycodone [Oxycodone] Adverse Reaction (Mild, Verified 11/10/19 12:05) mildly dizzy Past Medical History - Social History Chew tobacco use (# tins/day): No Frequency of alcohol use: None Drug Abuse: None - Past Medical History Cardiac Medical History: Denies: Hx Atrial Fibrillation, Hx Congestive Heart Failure, Hx Coronary Artery Disease, Hx DVT, Hx Heart Attack, Hx Hypercholesterolemia, Hx Hypert ension, Hx Pulmonary Embolism Pulmonary Medical History: Denies: Hx Asthma, Hx COPD, Hx Sleep Apnea Neurological Medical History: Denies: Hx Seizures Endocrine Medical History: Denies: Hx Diabetes Mellitus Type 1, Hx Diabetes Mellitus Type 2, Hx Hyperthyroidism, Hx Hypothyroidism Renal/ Medical History: Denies: Hx Peritoneal Dialysis Malignancy Medical History: Reports: Hx Breast Cancer - Left GI Medical History: Reports: Hx Gastroesophageal Reflux Disease. Denies: Hx Cirrhosis, Hx Hepatitis Psychiatric Medical History: Denies: Hx Depression Infectious Medical History: Denies: Hx Hepatitis Past Surgical History: Reports: Hx Abdominal Surgery - hernia repair, Hx Breast Surgery - left lumpectomy, Hx Herniorrhaphy, Other - Colonoscopic polypectomy 2013. Left breast lumpectomy with chemo, XRT. Denies: Hx Hysterectomy - Immunizations Hx Diphtheria, Pertussis, Tetanus Vaccination: Yes Physical Exam - Vital signs Vitals: Temp Pulse Resp BP Pulse Ox 99.1 F 109 H 16 129/98 H 99 11/10/19 11:38 11/10/19 11:38 11/10/19 11:38 11/10/19 11:38 11/10/19 11:38 - Respiratory Respiratory status: No respiratory distress Chest status: Nontender Breath sounds: Normal Chest palpation: Normal - Cardiovascular Rhythm: Tachycardia Course - Re-evaluation Re-evalutation: 11/10/19 12:11 Patient noted to be slightly tachycardic with a heart rate of 110 in triage. Patient has returned for further evaluation for her continued and worsening chest pain she was seen here on . Patient reports they wanted to obtain a CT of the chest but that she politely declined at that time. I have greeted and performed a rapid initial assessment of this patient. A comprehensive ED assessment and evaluation of the patient, analysis of test results and completion of the medical decision making process will be conducted by additional ED providers. - Vital Signs Vital signs: Temp Pulse Resp BP Pulse Ox 99.1 F 109 H 16 129/98 H 99 11/10/19 11:38 11/10/19 11:38 11/10/19 11:38 11/10/19 11:38 11/10/19 11:38 Doctor's Discharge - Discharge Referrals: ANNEL KING MD [Primary Care Provider] - Follow up as needed
[2019-11-10 12:46] LABS: HEMATOCRIT 40.3 % (36.0-47.0); HEMOGLOBIN 14.3 g/dL (12.0-15.5); MEAN CORPUSCULAR HEMOGLOBIN 29.7 pg (27.0-33.4); MEAN CORPUSCULAR HGB CONC 35.4 g/dL (32.0-36.0); MEAN CORPUSCULAR VOLUME 84 fl (80-97); PLATELET COUNT 378 10^3/uL (150-450); RED CELL DISTRIBUTION WIDTH 15.5 % (11.5-14.0); WHITE BLOOD COUNT 5.9 10^3/uL (4.0-10.5)
[2019-11-10] MEDS ORDERED: SUCRALFATE 1 GM TABLET PO ONE (12:47)
[2019-11-10 12:55] LABS: ALBUMIN 4.5 g/dL (3.5-5.0); ALKALINE PHOSPHATASE 173 U/L (38-126); ANION GAP 8 (5-19); ASPARTATE AMINO TRANSFERASE 39 U/L (14-36); BILIRUBIN,TOTAL 0.8 mg/dL (0.2-1.3); BLOOD UREA NITROGEN 14 mg/dL (7-20); CALCIUM 8.7 mg/dL (8.4-10.2); CARBON DIOXIDE 30 mmol/L (22-30); CHLORIDE 101 mmol/L (98-107); GLUCOSE 124 mg/dL (75-110); POTASSIUM 4.3 mmol/L (3.6-5.0)
[2019-11-10 13:08] LABS: ABSOLUTE LYMPHOCYTES# (MANUAL) 0.6 10^3/uL (0.5-4.7); BASOPHILS % (MANUAL) 0 % (0-2); EOSINOPHILS % (MANUAL) 2 % (0-6); LYMPHOCYTES % (MANUAL) 11 % (13-45); MONOCYTES % (MANUAL) 17 % (3-13); SEGMENTED NEUTROPHILS % (MAN) 70 % (42-78); TOTAL CELLS COUNTED 100
[2019-11-10 13:09] LABS: ANISOCYTOSIS SLIGHT; PLATELET COMMENT ADEQUATE; TARGET CELLS 1+
--- NOTE | 2019-11-10 13:55 | ER Document Report ---
ED General - General Chief Complaint: Chest Pain Stated Complaint: CHEST PAIN Time Seen by Provider: 11/10/19 12:01 Primary Care Provider: ANNEL KING MD [Primary Care Provider] - Follow up as needed Mode of Arrival: Ambulatory Information source: Patient Notes: 59-year-old woman presents to the emergency department with a history of metastatic ductal carcinoma undergoing radiation treatment. She had her last treatment on Tuesday and began having some tenderness in her mid sternal region which is worsened with swallowing. She states that it feels like he artburn at times, it also hurts whenever she swallows water or food. She was seen in the emergency department on at that time she was given GI cocktail and placed on Nexium. She says the pain continues, this is her second day taking the Nexium. TRAVEL OUTSIDE OF THE [place] IN LAST 30 DAYS: No - Related Data Allergies/Adverse Reactions: oxycodone [Oxycodone] Adverse Reaction (Mild, Verified 11/10/19 12:05) mildly dizzy Past Medical History - Social History Smoking Status: Never Smoker Chew tobacco use (# tins/day): No Frequency of alcohol use: None Drug Abuse: None Family History: Reviewed & Not Pertinent - Past Medical History Cardiac Medical History: Denies: Hx Atrial Fibrillation, Hx Congestive Heart Failure, Hx Coronary Artery Disease, Hx DVT, Hx Heart Attack, Hx Hypercholesterolemia, Hx Hypertensio n, Hx Pulmonary Embolism Pulmonary Medical History: Denies: Hx Asthma, Hx COPD, Hx Sleep Apnea Neurological Medical History: Denies: Hx Seizures Endocrine Medical History: Denies: Hx Diabetes Mellitus Type 1, Hx Diabetes Me llitus Type 2, Hx Hyperthyroidism, Hx Hypothyroidism Renal/ Medical History: Denies: Hx Peritoneal Dialysis Malignancy Medical History: Reports: Hx Breast Cancer - Left GI Medical History: Reports: Hx Gastroesophageal Reflux Disease. Denies: Hx Cirrhosis, Hx Hepatitis Psychiatric Medical History: Denies: Hx Depression Infectious Medical History: Denies: Hx Hepatitis Past Surgical History: Reports: Hx Abdominal Surgery - hernia repair, Hx Breast Surgery - left lumpectomy, Hx Herniorrhaphy, Other - Colonoscopic polypectomy 2013. Left breast lumpectomy with chemo, XRT. Denies: Hx Hysterectomy - Immunizations Hx Diphtheria, Pertussis, Tetanus Vaccination: Yes Review of Systems - Review of Systems Notes: Constitutional: Negative for fever. HENT: Negative for sore throat. Eyes: Negative for visual changes. Cardiovascular: Negative for chest pain. Respiratory: Negative for shortness of breath. Gastrointestinal: + Pain with swallowing Genitourinary: Negative for dysuria. Musculoskeletal: Negative for back pain. Skin: Negative for rash. Neurological: Negative for headaches, weakness or numbness. 10 point ROS negative except as marked above and in HPI. Physical Exam - Vital signs Vitals: Temp Pulse Resp BP Pulse Ox 99.1 F 109 H 16 129/98 H 99 11/10/19 11:38 11/10/19 11:38 11/10/19 11:38 11/10/19 11:38 11/10/19 11:38 - Notes Notes: PHYSICAL EXAMINATION: Physical Exam: General: Well-nourished well-developed 59-year-old in no acute distress HEENT: NC/AT, pupils equal round and reactive to light, MM moist,nares clear, oropharynx clear, airway patent Neck: supple, no adenopathy, no masses. Good range of motion Lungs: clear, no wheezing, no rales no rhonchi CVS: Regular rate and rhythm no murmur gallop or rub Abdomen: Soft, active, nontender, no masses, no hepatosplenomegaly Ext: No edema, clubbing or cyanosis. Neuro: Alert and responsive, moving all 4 extremities on command, cranial nerves intact, no focal findings Skin: Intact no open lesions, no rash PSYCH: Normal mood, normal affect. Course - Re-evaluation Re-evalutation: 11/10/19 13:56 Patient presents with a history of a radiation esophagitis. She is states that the Nexium is not controlling her symptoms, she is given a Carafate slurry in the emergency department and her symptoms have improved significantly. She will be discharged home with Carafate and given instructions on how to make a slurry. Patient is in agreement with this plan. - Vital Signs Vital signs: Temp Pulse Resp BP Pulse Ox 99.1 F 109 H 16 129/98 H 99 11/10/19 11:38 11/10/19 11:38 11/10/19 11:38 11/10/19 11:38 11/10/19 11:38 - Laboratory Result Diagrams: 11/10/19 12:15 11/10/19 12:15 Laboratory results interpreted by me: 11/10/19 11/10/19 12:15 12:15 RDW 15.5 H Lymphocytes % (Manual) 11 L Monocytes % (Manual) 17 H Glucose 124 H AST 39 H Alkaline Phosphatase 173 H Total Protein 9.0 H Discharge - Discharge Clinical Impression: Radiation-induced esophagitis Condition: Good Disposition: HOME, SELF-CARE Instructions: Esophagitis ([facility]), Sucralfate ([facility]) Additional Instructions: You were seen in the emergency department today with esophagitis secondary to radiation therapy. Please use the Carafate as instructed. Allow the tablet to dissolve in 30 cc of water, you may repeat the dosage before meals and every 4 hours as needed for comfort. Please follow-up with your primary doctor/oncologist regarding ongoing management of this problem. Please continue the Nexium as previously prescribed. If your symptoms are worsening or if you have other concerns you may return to the emergency department for further evaluation and treatment. HOME CARE INSTRUCTIONS & INFORMATION: Thank you for choosing us for your me dical needs. We hope you're satisfied with the care you received. After you leave, you must properly care for your problem and, at the same time, observe its progress. Any condition can change. Some illnesses can change rapidly over hours or days. If your condition worsens, return to the Emergency Department or see your physician promptly. ABOUT YOUR X-RAYS AND EKG'S: If you had an EKG or X-rays taken, they have been read by the Emergency Physician. The X-rays and EKG's will also be read by a Radiologist or B[employer] Graph[employer] Inspector within 24 hours. If discrepancies are noted, you will be notified by telephone. Please be certain the ED has a correct telephone number & address where you can be reached. Also, realize that some fractures or abnormalities do not show up on initial X-rays. If your symptoms continue, see your physician. ABOUT YOUR LABORATORY TEST: If you had laboratory tests, the results have been reviewed by the Emergency Physician. Some test results (for example cultures) may not be available for several days. You will be contacted if any test result shows you need additional treatment. Please be certain the ED has a correct telephone number and address where you can be reached. ABOUT YOUR MEDICATIONS: You will receive instructions on how to take your medicine on the prescription label you receive. Additional information may be provided by the Pharmacy. If you have questions afterwards, call the ED for clarification or further instructions. Some prescribed medications may cause drowsiness. Do not perform tasks such as driving a car or operating machinery without consulting your Pharmacist. If you feel you need a refill of pain medication, your condition will need re-evaluation. Please do not call for a refill of any medication. ABOUT YOUR SIGNATURE: Signature of this document acknowledges to followin. Understanding that you received emergency treatment and that you may be released before al medical problems are known or treated. Please be certain the ED has a correct phone number & address where you can be reached. 2. Acknowledgement that you will arrange for follow-up care as recommended. 3. Authorization for the Emergency Physician to provide information to your follow-up Physician in order to maximize your care. AT ANY TIME, IF YOUR SYMPTOMS CHANGE SIGNIFICANTLY OR WORSEN OR YOU DEVELOP NEW SYMPTOMS, RETURN TO THE EMERGENCY DEPARTMENT IMMEDIATELY FOR RE-EVALUATION. OUR GOAL IS TO PROVIDE EXCELLENT MEDICAL CARE! WE HOPE THAT WE HAVE MET YOUR EXPECTATIONS DURING YOUR EMERGENCY DEPARTMENT VISIT AND THAT YOU FEEL YOU HAVE RECEIVED EXCELLENT CARE! Prescriptions: Sucralfate [Carafate 1 gm Tablet] 1 gm PO Q4 PRN #60 tablet PRN Reason: For Pain Referrals: ANNEL KING MD [Primary Care Provider] - Follow up as needed
[2019-11-10 14:18] VITALS: BP 143/87
--- NOTE | 2019-11-10 14:28 | EKG REPORT ---
SEVERITY:- ABNORMAL ECG - SINUS TACHYCARDIA PROBABLE LEFT ATRIAL ABNORMALITY PROBABLE LEFT VENTRICULAR HYPERTROPHY BORDERLINE T ABNORMALITIES, INFERIOR LEADS : Confirmed by: Milton Gentile MD 10-Nov-2019 14:27:35
== END 2019-11-10 14:16 | disposition home or self-care (01) ==
LOC: ER 11:29
DX: K20.8 Other esophagitis (principal); R07.9 Chest pain, unspecified; Z79.899 Other long term (current) drug therapy; Z85.3 Personal history of malignant neoplasm of breast
CPT/HCPCS: 36415; 80053; 84484; 85025; 93005; 93010; 99285

== ENCOUNTER → 2019-11-12 | Outpatient (CLI) | payer OTHER, BC ==
--- NOTE | 2019-11-12 10:43 | RADIOLOGY REPORT (SQ) ---
EXAM DESCRIPTION: BARIUM SWALLOW ESOPHAGUS IMAGES COMPLETED DATE/TIME: 11/12/2019 9:51 am REASON FOR STUDY: DYSPHAGIA, PHARYNGOESOPHAGEAL PHASE R13.14 DYSPHAGIA, PHARYNGOESOPHAGEAL PHASE K2 2.8 OTHER SPECIFIED DISEASES OF ESOPHAGUS COMPARISON: None. TECHNIQUE: Under fluoroscopic guidance, patient ingested thin barium. Fluoroscopic spot images and r outine radiographic images acquired and stored on PACS. 12 MM BARIUM TABLET GIVEN: Yes. THE PILL STUCK IN THE PROXIMAL ESOPHAGUS JUST BELOW THE THORACIC INLET LIMITATIONS: The patient was in a tremendous amount of pain so the study was limited. All imaging w as done in an upright position. FLUOROSCOPY TIME: 1 minutes 7 seconds. 6 images saved to PACS. FINDINGS: NEUROMUSCULAR COORDINATION OF SWALLOW: Normal. No aspiration. ESOPHAGEAL MOTILITY: Normal peristalsis. No esophageal spasm. ESOPHAGEAL MUCOSA: Focal area of narrowing just distal to the thoracic inlet, above the level of the aortic arch, which delayed passage of the 12 mm barium tablet. The pill remained in this area throug hout the procedure. There is another area narrowing at the distal esophagus by Schatzki's ring forma tion. GASTRO-ESOPHAGEAL JUNCTION: Small sliding hiatal hernia. No reflux identified. NON-GI TRACT STRUCTURES: No significant finding. OTHER: No other significant finding. IMPRESSION: WITH 2 AREAS OF NARROWING WITHIN THE ESOPHAGUS. NARROWING OF THE PROXIMAL ESOPHAGUS DEL AYS PASSAGE OF THE 12 MM BARIUM TABLET. SCHATZKI'S RING FORMATION IN THE DISTAL ESOPHAGUS JUST PROXI MAL TO THE SMALL SLIDING HIATAL HERNIA. NO MASSES OR ULCERATIONS ARE SEEN. COMMENT: Findings were called to Dr. Matias on 11/12/2019 at 1035 hours. Quality ID 145: Final reports for procedures using fluoroscopy that document radiation exposure elvira hillary, or exposure time and number of fluorographic images (if radiation exposure indices are not avail able) TECHNICAL DOCUMENTATION: JOB ID: [id number] 2010 [email or web address]- All Rights Reserved Reading location - IP/workstation name: [email or web address]
== END ==
LOC: RAD 08:55
PROVIDERS: ATTEND Internal Medicine Gastroenterology
DX: R13.14 Dysphagia, pharyngoesophageal phase (principal); K22.8 Other specified diseases of esophagus
CPT/HCPCS: 74220

== ENCOUNTER → 2020-03-07 | Outpatient (CLI) | payer OTHER, BC ==
--- NOTE | 2020-03-07 09:04 | RADIOLOGY REPORT (SQ) ---
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 Images reviewed with lung, soft tissue and bone windows. Reconstructed coronal and sagittal MPR and MIP images reviewed. All images stored on PACS. All CT scanners at this facility use dose modulation, iterative reconstruction, and/or weight based d osing when appropriate to reduce radiation dose to as low as reasonably achievable (ALARA). [facility]: Dose Right [facility]: CareDose [facility]: Dose Right [facility]: Teradose 4D [facility]: [employer] CONTRAST TYPE AND DOSE: contrast/concentration: Isovue 350.00 mmol/ml; Total Contrast Delivered: 80. 0 ml; Total Saline Delivered: 45.0 ml RENAL FUNCTION: Creatinine 1.5 RADIATION DOSE: . LIMITATIONS: None. FINDINGS: LUNGS AND PLEURA: Stable scarring at the left lung apex. Increased right upper and lower lobe paramediastinal consolidation and ground-glass attenuation compared to prior. No new discrete n odules. No pleural effusion or pneumothorax. HILAR AND MEDIASTINAL STRUCTURES: Right perihilar consolidation as above. Stable right axillary soft tissue nodule measuring 2.5 x 2.1 cm (series 2, image 13). Stable postsurgical changes within the l eft breast and soft tissue density calcifications. Stable left axillary surgical clips. No discrete mediastinal or hilar adenopathy. HEART AND VASCULAR STRUCTURES: No aneurysm or dissection. No central pulmonary emboli. No pericardi al effusion. HARDWARE: None in the chest. UPPER ABDOMEN: See separate report of the CT of the abdomen. THYROID AND OTHER SOFT TISSUES: No masses. No adenopathy. BONES: Interval sclerosis of previously-seen multiple lucent osseous lesions causing increased conspi cuity. No definitive new discrete lesions. Increased compression deformity of the pathologic T6 uli tebral body. OTHER: No other significant finding. IMPRESSION: 1. New right paramediastinal consolidation and ground-glass attenuation, likely atelect atic change or infectious/inflammatory. No discrete pulmonary parenchymal nodules identified. Stabl e enlarged right axillary lymph nodes. 2. Interval sclerosis of previously-seen multiple lucent osseous lesions suggestive of treatment res ponse. No definitive new bony lesions. 3. Increased compression deformity of the T6 pathologic fracture from prior exam. TECHNICAL DOCUMENTATION: JOB ID: [id number] Quality ID # 436: Final reports with documentation of one or more dose reduction techniques (e.g., Au tomated exposure control, adjustment of the mA and/or kV according to patient size, use of iterative reconstruction technique) 2010 [employer]- All Rights Reserved Reading location - IP/workstation name: [email or web address]
--- NOTE | 2020-03-07 09:13 | RADIOLOGY REPORT (SQ) ---
EXAM DESCRIPTION: CT ABD/PELVIS WITH IV ONLY IMAGES COMPLETED DATE/TIME: 03/07/2020 8:34 am REASON FOR STUDY: C50.911 MALIGNANT NEOPLASM OF UNSP SITE OF RIGHT FEMALE BREAST C50.911 MALIGNANT NEOPLASM OF UNSP SITE OF RIGHT FEMALE KEANU C79.51 SECONDARY MALIGNANT NEOPLASM OF BONE COMPARISON: 10/09/2019 TECHNIQUE: CT scan of the abdomen and pelvis performed using helical scanning technique with dynamic intravenous contrast injection. No oral contrast. Images reviewed with lung, soft tissue, and bone windows. Reconstructed coronal and sagittal MPR images reviewed. Delayed images for evaluation of the urinary system also acquired. All images stored on PACS. All CT scanners at this facility use dose modulation, iterative reconstruction, and/or weight based d osing when appropriate to reduce radiation dose to as low as reasonably achievable (ALARA). [facility]: Dose Right [facility]: CareDose [facility]: Dose Right [facility]: Teradose 4D [facility]: [employer] CONTRAST TYPE AND DOSE: See chest RENAL FUNCTION: See chest RADIATION DOSE: CT Rad equipment meets quality standard of care and radiation dose reduction techniq ues were employed. CTDIvol: 5.4 - 5.8 mGy. DLP: 707 mGy-cm.. LIMITATIONS: None. FINDINGS: LOWER CHEST: See separate report of the CT of the chest. LIVER: Normal size. No masses. No dilated ducts. SPLEEN: Atrophic or absent. PANCREAS: Stable cystic lesion along the pancreatic tail measuring 4.2 x 3.6 cm. No peripancreatic i nflammatory change. GALLBLADDER: No identified stones by CT criteria. No inflammatory changes to suggest cholecystitis. ADRENAL GLANDS: No significant masses or asymmetry. RIGHT KIDNEY AND URETER: Dose discrete solid masses. Stable low-density lesions most compatible with cysts, largest on the lower pole measuring 1.7 cm. No significant calcifications. No hydronephro sis or hydroureter. LEFT KIDNEY AND URETER: No solid masses. No significant calcifications. No hydronephrosis or hydr oureter. AORTA AND VESSELS: No aneurysm. No dissection. Renal arteries, SMA, celiac without stenosis. RETROPERITONEUM: No retroperitoneal adenopathy, hemorrhage or masses. BOWEL AND PERITONEAL CAVITY: No evidence of intestinal obstruction. No focal bowel wall thickening. Moderate formed stool throughout the colon. Scattered colonic diverticula. APPENDIX: Normal. PELVIS: Unchanged appearance of the enlarged heterogeneous uterus, likely uterine leiomyoma. Unremar kable urinary bladder. No discrete adenopathy. ABDOMINAL WALL: Small supraumbilical and umbilical fat containing hernias. Fat containing left ingui nal hernia. BONES: No acute bony abnormality. Increased sclerosis of multiple osseous bony lesions causing incre ased conspicuity. No acute bony findings. OTHER: No other significant finding. IMPRESSION: 1. No definitive evidence of new soft tissue intra-abdominal/pelvic metastatic disease. 2. Stable cystic lesion along the pancreatic tail. 3. Increased sclerosis of previously-seen multiple osseous bony lesions suggestive of treatment resp onse. TECHNICAL DOCUMENTATION: JOB ID: [id number] Quality ID # 436: Final reports with documentation of one or more dose reduction techniques (e.g., Au tomated exposure control, adjustment of the mA and/or kV according to patient size, use of iterative reconstruction technique) 2010 [employer]- All Rights Reserved Reading location - IP/workstation name: [email or web address]
--- NOTE | 2020-03-07 14:30 | RADIOLOGY REPORT (SQ) ---
EXAM DESCRIPTION: NM WHOLE BODY BONE SCAN IMAGES COMPLETED DATE/TIME: 03/07/2020 12:47 pm REASON FOR STUDY: C79.51 SECONDARY MALIGNANT NEOPLASM OF BONE C50.911 MALIGNANT NEOPLASM OF UNSP SI TE OF RIGHT FEMALE KEANU C79.51 SECONDARY MALIGNANT NEOPLASM OF BONE COMPARISON: 10/09/2019 RADIONUCLIDE AND DOSE: 20 millicuries Tc99m MDP. The route of agent administration: Intravenous. ADDITIONAL DRUGS AND DOSES: None. TECHNIQUE: Routine delayed images at 3 hours post radionuclide injection acquired of the bony skelet on including anterior and posterior whole-body projections and additional focused images as needed. LIMITATIONS: None. FINDINGS: BONES: There are increasing areas of abnormal uptake in the calvarium, sternum, ribs, spin e, and pelvis and proximal right humerus. KIDNEYS: Symmetric excretion without obstruction. OTHER: No other significant finding. IMPRESSION: Increasing metastatic disease to bone. COMMENT: Quality measure 147: Current bone scan is compared with any available plain radiographs, p rior bone scans, and CT/MRI. TECHNICAL DOCUMENTATION: JOB ID: [id number] 2010 [employer]- All Rights Reserved Reading location - IP/workstation name: [email or web address]
== END ==
LOC: RAD 08:02
PROVIDERS: ATTEND Nurse Practitioner Family
DX: C50.911 Malignant neoplasm of unspecified site of right female breast (principal); C79.51 Secondary malignant neoplasm of bone; K40.90 Unilateral inguinal hernia, without obstruction or gangrene, not specified as recurrent
CPT/HCPCS: 82565; 78306; 71260; 74177; A9503; Q9969

== ENCOUNTER 2020-05-07 15:49 | Emergency (ER) | payer OTHER, BC ==
[2020-05-07] MEDS ORDERED: NORMAL SALINE 1000 ML 1,000 ML IV ONE ×2 (16:01→20:19)
[2020-05-07 16:03] VITALS: BP 160/100
--- NOTE | 2020-05-07 16:04 | ER Document Report ---
ED Medical Screen (RME) - General Chief Complaint: High Blood Sugar Stated Complaint: ABNORMAL LABS/BLOOD SUGAR HIGH Time Seen by Provider: 05/07/20 15:53 Primary Care Provider: ALFREDA ABRAHAM NP [Primary Care Provider] - Follow up as needed Notes: HPI: 60-year-old female presenting for hyperglycemia today. Patient had a partial pancreatitis a 2 years ago at [place]. Patient had been on metformin but was undergoing radiation therapy with Dr. Yee for breast cancer and stopped the Metformin 4 months ago. Patient still receives injections relative to the breast cancer treatment but is no longer on radiation therapy. States that she went to her doctor's office today for her injections and was told her blood glucose was greater than 600 so she was sent to the emergency department. She does report that she has had increased thirst and urination with fatigue over the last week. No fevers PHYSICAL EXAMINATION: Patient is mildly tachycardic. Lung sounds are clear to auscultation no abdominal pain on palpation gait is normal I have greeted and performed a rapid initial assessment of this patient. A comprehensive ED assessment and evaluation of the patient, analysis of test results and completion of medical decision making process will be conducted by an additional ED providers. Please note that clinical decision making for this patient was made during the 2019 pandemic of novel coronavirus which caused a significant strain on the healthcare system including at this particular facility. Criteria for admission discharge and level of care decisions as well as treatment decisions have necessarily changed TRAVEL OUTSIDE OF THE [place] IN LAST 30 DAYS: No - Related Data Allergies/Adverse Reactions: oxycodone [Oxycodone] Adverse Reaction (Mild, Verified 11/10/19 12:05) mildly dizzy Past Medical History - Past Medical History Cardiac Medical History: Denies: Hx Atrial Fibrillation, Hx Congestive Heart Failure, Hx Coronary Artery Disease, Hx DVT, Hx Heart Attack, Hx Hypercholesterolemia, Hx Hypertension, Hx Pulmonary Embolism Pulmonary Medical History: Denies: Hx Asthma, Hx COPD, Hx Sleep Apnea Neurological Medical History: Denies: Hx Seizures Endocrine Medical History: Denies: Hx Diabetes Mellitus Type 1, Hx Diabetes Mellitus Type 2, Hx Hyperthyroidism, Hx Hypothyroidism Renal/ Medical History: Denies: Hx Peritoneal Dialysis Malignancy Medical History: Reports: Hx Breast Cancer - Left GI Medical History: Reports: Hx Gastroesophageal Reflux Disease. Denies: Hx Cirrhosis, Hx Hepatitis Psychiatric Medical History: Denies: Hx Depression Infectious Medical History: Denies: Hx Hepatitis Past Surgical History: Reports: Hx Abdominal Surgery - hernia repair, Hx Breast Surgery - left lumpectomy, Hx Herniorrhaphy, Other - Colonoscopic polypectomy 2013. Left breast lumpectomy with chemo, XRT. Denies: Hx Hysterectomy - Immunizations Hx Diphtheria, Pertussis, Tetanus Vaccination: Yes Doctor's Discharge - Discharge Referrals: ALFREDA ABRAHAM NP [Primary Care Provider] - Follow up as needed
[2020-05-07 16:41] LABS: ABSOLUTE MONOCYTES (AUTO) 0.8 10^3/uL (0.1-1.4); TOTAL CELLS COUNTED % (AUTO) 100 %
[2020-05-07 16:43] LABS: VENOUS BLOOD BASE EXCESS 2.7 mmol/L; VENOUS BLOOD HCO3 29.6 mmol/L (20-32); VENOUS BLOOD PCO2 54.6 mmHg (35-63); VENOUS BLOOD PH 7.35 (7.30-7.42)
[2020-05-07 16:47] LABS: APPEARANCE,URINE CLEAR; BILIRUBIN,URINE NEGATIVE (NEGATIVE); COLOR,URINE YELLOW; GLUCOSE, URINE >=500 mg/dL (NEGATIVE); KETONES,URINE 20 mg/dL (NEGATIVE); LEUKOCYTE ESTERASE,URINE TRACE (NEGATIVE); NITRITE,URINE POSITIVE (NEGATIVE); PROTEIN,URINE NEGATIVE (NEGATIVE); URINE SPECIFIC GRAVITY 1.035; UROBILINOGEN,URINE NEGATIVE mg/dL (<2.0)
[2020-05-07 16:48] LABS: ABSOLUTE BASOPHILS # (AUTO) 0.1 10^3/uL (0.0-0.2); ABSOLUTE LYMPHOCYTES (AUTO) 2.4 10^3/uL (0.5-4.7); ABSOLUTE NEUT (AUTO) 3.7 10^3/uL (1.7-8.2); BASOPHILS % (AUTO) 0.8 % (0-2); EOSINOPHILS % (AUTO) 0.7 % (0-6); HEMATOCRIT 38.5 % (36.0-47.0); HEMOGLOBIN 13.3 g/dL (12.0-15.5); MEAN CORPUSCULAR HEMOGLOBIN 29.5 pg (27.0-33.4); MEAN CORPUSCULAR HGB CONC 34.5 g/dL (32.0-36.0); MEAN CORPUSCULAR VOLUME 86 fl (80-97); MONOCYTES % (AUTO) 11.7 % (3-13); PLATELET COUNT 347 10^3/uL (150-450); RED CELL DISTRIBUTION WIDTH 15.1 % (11.5-14.0); SEGMENTED NEUTROPHILS % (AUTO) 52.8 % (42-78)
[2020-05-07 17:03] LABS: ALBUMIN 4.2 g/dL (3.5-5.0); ALKALINE PHOSPHATASE 119 U/L (38-126); ANION GAP 10 (5-19); ASPARTATE AMINO TRANSFERASE 40 U/L (14-36); BILIRUBIN,DIRECT 0.2 mg/dL (0.0-0.4); BILIRUBIN,TOTAL 0.5 mg/dL (0.2-1.3); BLOOD UREA NITROGEN 23 mg/dL (7-20); CALCIUM 9.9 mg/dL (8.4-10.2); CARBON DIOXIDE 31 mmol/L (22-30); CHLORIDE 95 mmol/L (98-107); POTASSIUM 3.9 mmol/L (3.6-5.0); TOTAL PROTEIN 8.9 g/dL (6.3-8.2)
[2020-05-07 17:12] LABS: GLUCOSE 619 mg/dL (75-110)
--- NOTE | 2020-05-07 21:59 | EKG REPORT ---
SEVERITY:- NORMAL ECG - SINUS RHYTHM : Confirmed by: Winifred London MD 07-May-2020 21:58:36
--- NOTE | 2020-05-07 22:37 | ER Document Report ---
ED General - General Chief Complaint: High Blood Sugar Stated Complaint: ABNORMAL LABS/BLOOD SUGAR HIGH Time Seen by Provider: 05/07/20 15:53 Primary Care Provider: ALFREDA ABRAHAM NP [Primary Care Provider] - Follow up as needed TRAVEL OUTSIDE OF THE [place] IN LAST 30 DAYS: No - HPI Notes: 60-year-old female presents with high blood sugar. Patient was at her oncology office today and her blood sugar was noted to be greater than 600 per their monitor. Patient has history of diabetes and was previously on Metformin, has not been on any medications recently as her numbers had improved. She has had 1 week of increased thirst and urination. No headache, chest pain, shortness of breath, abdominal pain, N/V/D, or dysuria. Patient states that she has informed her primary care doctor and will be seeing her tomorrow morning, she states that her primary care doctor said to just get the sugar in the 300s and she will take care of the rest tomorrow. - Related Data Allergies/Adverse Reactions: oxycodone [Oxycodone] Adverse Reaction (Mild, Verified 05/07/20 18:33) mildly dizzy Home Medications: stop metformin in september, calcium supplement, cancer meds Past Medical History - General Information source: Patient - Social History Smoking Status: Former Smoker Chew tobacco use (# tins/day): No Frequency of alcohol use: None Drug Abuse: None Family History: Reviewed & Not Pertinent Patient has homicidal ideation: No - Past Medical History Cardiac Medical History: Denies: Hx Atrial Fibrillation, Hx Congestive Heart Failure, Hx Coronary Artery Disease, Hx DVT, Hx Heart Attack, Hx Hypercholesterolemia, Hx Hypertension, Hx Pulmonary Embolism Pulmonary Medical History: Denies: Hx Asthma, Hx COPD, Hx Sleep Apnea Neurological Medical History: Denies: Hx Seizures Endocrine Medical History: Reports: Hx Diabetes Mellitus Type 2. Denies: Hx Diabetes Mellitus Type 1, Hx Hyperthyroidism, Hx Hypothyroidism Renal/ Medical History: Denies: Hx Peritoneal Dialysis Malignancy Medical History: Reports: Hx Breast Cancer - Left GI Medical History: Reports: Hx Gastroesophageal Reflux Disease. Denies: Hx Cirrhosis, Hx Hepatitis Psychiatric Medical History: Denies: Hx Depression Infectious Medical History: Denies: Hx Hepatitis Past Surgical History: Reports: Hx Abdominal Surgery - hernia repair, Hx Breast Surgery - left lumpectomy, Hx Herniorrhaphy, Other - Colonoscopic polypectomy 2013. Left breast lumpectomy with chemo, XRT. Denies: Hx Hysterectomy - Immunizations Hx Diphtheria, Pertussis, Tetanus Vaccination: Yes Review of Systems - Review of Systems Constitutional: denies: Fever EENT: No symptoms reported Cardiovascular: No symptoms reported Respiratory: No symptoms reported Gastrointestinal: No symptoms reported Genitourinary: No symptoms reported Female Genitourinary: No symptoms reported Musculoskeletal: No symptoms reported Skin: No symptoms reported Hematologic/Lymphatic: Other - History cancer Neurological/Psychological: No symptoms reported Physical Exam - Vital signs Vitals: Temp Pulse Resp BP Pulse Ox 98.0 F 112 H 20 160/100 H 96 05/07/20 15:57 05/07/20 15:57 05/07/20 15:57 05/07/20 15:57 05/07/20 15:57 - General General appearance: Appears well, Alert In distress: None - HEENT Head: Normocephalic, Atraumatic Extraocular movements intact: Yes Pupils: PERRL - Respiratory Breath sounds: Normal - Cardiovascular Rhythm: Regular Heart sounds: Normal auscultation - Abdominal Tenderness: Nontender - Extremities General upper extremity: Normal ROM General lower extremity: Normal ROM - Neurological Neuro grossly intact: Yes Cognition: Normal Orientation: AAOx4 - Psychological Associated symptoms: Normal affect - Skin Skin Temperature: Warm Course - Re-evaluation Re-evalutation: 60-year-old female history of T2 DM not currently on medication here with 1 week of polydipsia and polyuria, markedly hyperglycemic in outpatient setting. On exam she is well-appearing, hemodynamically stable, no gross physical exam abnormalities. Treatment has been initiated through triage, she has received 2 L of fluid and patient stating that she does not want any more fluid to be given to her, she would just like some water, which was provided to her. Labs reviewed. No leukocytosis or left shift, no acute anemia. Hyperglycemia, however normal pH, no anion gap and bicarb of 31. Labs not suggestive of DKA. Creatinine within normal limits. Urine with positive nitrites, patient did not voice any UTI-like symptoms, will send for culture. 05/08/20 00:42 Glucose has down trended to the 300s which was the goal, patient is eager to go home at this time. Patient has follow-up in a few hours with her primary care doctor peer return precautions given, stable at time of discharge. - Vital Signs Vital signs: Temp Pulse Resp BP Pulse Ox 98.0 F 90 20 160/100 H 99 05/07/20 15:57 05/08/20 01:11 05/08/20 01:11 05/08/20 01:11 05/08/20 01:11 - Laboratory Results Result Diagrams: 05/07/20 16:23 05/07/20 16:23 Laboratory Results Interpreted: 05/07/20 05/07/20 05/07/20 16:00 16:23 16:23 RDW 15.1 H Sodium 135.7 L Chloride 95 L Carbon Dioxide 31 H BUN 23 H Glucose 619 H* POC Glucose 531 H* AST 40 H Total Protein 8.9 H Urine Glucose (UA) Urine Ketones Urine Nitrite Ur Leukocyte Esterase Urine Ascorbic Acid 05/07/20 05/07/20 05/08/20 16:30 20:09 00:39 RDW Sodium Chloride Carbon Dioxide BUN Glucose POC Glucose 439 H* 335 H AST Total Protein Urine Glucose (UA) >=500 H Urine Ketones 20 H Urine Nitrite POSITIVE H Ur Leukocyte Esterase TRACE H Urine Ascorbic Acid 20 H Critical Laboratory Results Reviewed: Yes Attending or Supervising Physician who Reviewed Labs: ROBERTO CARLOS NUÑEZ - Radiology Results Critical Radiology Results Reviewed: No Critical Results - EKG Interpretation by Me Additional EKG results interpreted by me: EKG is interpreted by me. Normal sinus rhythm, rate 85. Narrow QRS, QTC within normal limits. No ST segment elevation or depressions Discharge - Discharge Clinical Impression: Hyperglycemia due to diabetes mellitus Disposition: HOME, SELF-CARE Additional Instructions: Please follow-up with your primary care doctor tomorrow as planned. Your urine was sent for culture, you will be called if an infection is present. Return to the emergency department for any concerning worsening symptoms. Referrals: ALFREDA ABRAHAM NP [Primary Care Provider] - Follow up as needed
== END 2020-05-08 01:12 | disposition home or self-care (01) ==
LOC: ER 15:49
DX: E11.65 Type 2 diabetes mellitus with hyperglycemia (principal); R63.1 Polydipsia; R35.8 Other polyuria; C50.912 Malignant neoplasm of unspecified site of left female breast
CPT/HCPCS: 93005; 99284; 96360; 96361; 36415; 82010; 82962; 85025; 80053; 81001; 82803; 93010; J7030